=== PATIENT | female | born 1935 | race Caucasian/White ===

== ENCOUNTER → 2019-01-31 | Day surgery (SDC) | payer MEDICARE ==
[2019-01-30 09:10] VITALS: BMI 26.2
[~2019-01-31] MED LIST: LACTATED RINGERS 1,000 ML IV SCH; LIDOCAINE 1% INJ 10MG/ML (20 ML MDV) ONE; PROPOFOL 10 MG/ML 20 ML VIAL IV ONE
[2019-01-31 07:37] VITALS: RESP 16; TEMP 98.4
--- NOTE | 2019-01-31 08:45 | P.PCN ---
Date of Procedure: 01/31/19 Procedure(s) Performed: BRIEF HISTORY: Patient is a 83-year-old, pleasant, female, scheduled for an upper endoscopy as a part of evaluation of GERD and passive regurgitation with intermittent dysphagia to solids.. PROCEDURE PERFORMED: Esophagoscopy. PREOPERATIVE DIAGNOSIS: GERD and intermittent dysphagia to solids and passive regurgitation. IV sedation per anesthesia. PROCEDURE: After informed consent was obtained, the patient was brought into the endoscopy unit. IV sedation was administered by Anesthesia under continuous monitoring. Initially the Olympus GIF-140 video endoscope was inserted into the mouth. Esophagus intubated without any difficulty. 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 This was readily aspirated. Following this despite multiple attempts I was not able to advance the scope into the esophagus because of the acute angulation of the esophageal lumen. Hence the procedure was terminated to avoid complications. Patient tolerated the procedure well. IMPRESSION: 1. 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 RECOMMENDATIONS: The findings of this examination were discussed with the patient as well as her family. She'll be scheduled for a barium esophagogram to evaluate the rest of the esophagus. She'll be seen in office in 2 weeks.
[2019-01-31 08:49] VITALS: PULSE 80
[2019-01-31 09:05] VITALS: BP 164/79
--- NOTE | 2019-01-31 11:14 | FL ---
EXAMINATION TYPE: FL esophagus cervic/pharynx DATE OF EXAM: 01/31/2019 HISTORY: History of dysphasia with failed EGD today. Large diverticulum suspected. COMPARISON: NONE TECHNIQUE: A double contrast esophagram is performed utilizing air and barium. A total of 34 second s of fluoroscopic time was utilized during procedure. 52 spot images are saved. FINDINGS: Due to patient's age and limited mobility, exam is slightly suboptimal. Patient also had less than op timal tolerance of air contrast. There is a wide mouth lower cervical outpouching or diverticulum blanca ntified during real-time drinking. With the diverticulum measures roughly 2 vertebral widith. Length of diverticulum is roughly 4 vertebra and height. There is pooling of contrast with debris in the lar ge diverticulum. Neck is fairly wide mouth and felt slightly anterior in location. Some underlying es ophageal dysmotility is seen more prominent when patient drinks laying semiupright. Small sliding-typ e hiatal hernia seen towards the end of the study. No stricture is present. IMPRESSION: Confirmation of large esophageal outpouching favored large Zenker's diverticulum as deta iled above. Consider cardiothoracic surgical referral.
== END ==
LOC: ORWHC2ENDO 07:09
PROVIDERS: ATTEND Internal Medicine Gastroenterology
DX: K21.9 Gastro-esophageal reflux disease without esophagitis (principal); K22.5 Diverticulum of esophagus, acquired; T18.128A Food in esophagus causing other injury, initial encounter; K22.4 Dyskinesia of esophagus; K44.9 Diaphragmatic hernia without obstruction or gangrene; I10 Essential (primary) hypertension; Z87.891 Personal history of nicotine dependence; Z79.899 Other long term (current) drug therapy; Z97.2 Presence of dental prosthetic device (complete) (partial); Z98.42 Cataract extraction status, left eye; Z98.41 Cataract extraction status, right eye
CPT/HCPCS: 43200; 74210; J2001; J2704

== ENCOUNTER 2023-02-24 07:35 | Inpatient (IN) | payer MEDICARE ==
[2023-02-24] MEDS ORDERED: IPRATROPIUM-ALBUTEROL 3 ML NEB INHALATION STA (07:44)
[2023-02-24] MEDS ORDERED: methylPREDNISolone SOD SUCCI 125 MG/2 ML VIAL IV STA (07:44)
[2023-02-24] MEDS ORDERED: SODIUM CHLORIDE 0.9% 1,000 ML IV STA (07:44)
--- NOTE | 2023-02-24 07:48 | ED ---
General Adult HPI - General Chief complaint: Shortness of Breath Stated complaint: ASTON Time Seen by Provider: 02/24/23 07:36 Source: patient, EMS, RN notes reviewed Mode of arrival: EMS Limitations: no limitations - History of Present Illness Initial comments: Patient is a pleasant 87-year-old female presenting to the emergency department with concern with difficulty breathing. Onset of symptoms was yesterday. Patient did have her house fumigated. Patient feels like the fumes triggered her COPD. Pulse ox was 70% on arrival. Patient feeling much better with BiPAP. Patient did receive one nebulizer in route. No fever. No cough. No leg pain or leg swelling. Patient does have history of similar symptoms previous associated with COPD - Related Data Home Medications Medication Instructions Recorded Confirmed Loratadine [Claritin] 10 mg PO HS 01/30/19 01/31/19 Mag/Aluminum/Sod Bicarb/Alginc 2 each PO PC-TID 01/30/19 01/31/19 [Gaviscon 80-14.2 mg Tab Chew] amLODIPine [Norvasc] 5 mg PO BID 01/30/19 01/31/19 lisinopriL [Prinivil] 20 mg PO BID 01/30/19 01/31/19 Allergies Allergy/AdvReac Type Severity Reaction Status Date / Time No Known Allergies Allergy Verified 02/24/23 07:43 Review of Systems ROS Statement: Those systems with pertinent positive or pertinent negative responses have been documented in the HPI. ROS Other: All systems not noted in ROS Statement are negative. Constitutional: Denies: fever Eyes: Denies: eye pain ENT: Denies: ear pain Respiratory: Reports: as per HPI, dyspnea Cardiovascular: Denies: chest pain Endocrine: Denies: fatigue Gastrointestinal: Denies: abdominal pain Genitourinary: Denies: dysuria Musculoskeletal: Denies: back pain Skin: Denies: rash Neurological: Denies: weakness Past Medical History Past Medical History: GERD/Reflux, Hypertension Additional Past Medical History / Comment(s): ALLERGIES History of Any Multi-Drug Resistant Organisms: None Reported Additional Past Surgical History / Comment(s): CHRISTIAN CATARACTS Past Anesthesia/Blood Transfusion Reactions: No Reported Reaction Past Alcohol Use History: None Reported Past Drug Use History: None Reported - Past Family History Mother Family Medical History: No Reported History General Exam Limitations: no limitations General appearance: alert Head exam: Present: atraumatic, normocephalic Eye exam: Present: normal appearance Neck exam: Present: normal inspection Respiratory exam: Present: respiratory distress, wheezes, decreased breath sounds Cardiovascular Exam: Present: regular rate, normal rhythm GI/Abdominal exam: Present: soft. Absent: tenderness Extremities exam: Present: normal inspection. Absent: pedal edema, calf tenderness Neurological exam: Present: alert Psychiatric exam: Present: normal affect, normal mood Skin exam: Present: normal color Course Vital Signs 02/24/23 02/24/23 02/24/23 07:35 07:38 07:44 Temperature 96.9 F L Pulse Rate 89 Respiratory 24 Rate Blood Pressure 150/76 O2 Sat by Pulse 92 L Oximetry Fraction of 100 100 Inspired Oxygen (FIO2) 02/24/23 02/24/23 07:54 08:43 Temperature Pulse Rate 78 77 Respiratory 24 Rate Blood Pressure 115/60 O2 Sat by Pulse 100 Oximetry Fraction of Inspired Oxygen (FIO2) EKG Findings - EKG Results: EKG: interpreted by ERMD ((X this. Poor R-wave progression.), sinus rhythm, normal ST/T Medical Decision Making - Medical Decision Making There is concern for sepsis diagnosed at 9:12 AM. Patient does have COPD with Sirs criteria. Lactic acid and blood culture and IV antibiotic All been ordered. Lactic acid is elevated likely secondary to hypoxia. Patient will not be given any fluid bolus secondary to concern with congestive heart failure and this is being further evaluated. Was pt. sent in by a medical professional or institution (BELA Raines, PATIENT APPOINTMENT COORDINATOR, urgent care, hospital, or skilled nursing...) When possible be specific @ -No Did you speak to anyone other than the patient for history (EMS, parent, family, police, friend...)? What history was obtained from this source @ -Family arrived later and further provides history that patient was a sym ptomatic prior to exposure yesterday Did you review nursing and triage notes (agree or disagree)? Why? @ -I reviewed and agree with nursing and triage notes Were old charts reviewed (outside hosp., previous admission, EMS record, old EKG, old radiological studies, urgent care reports/EKG's, skilled nursing records)? Report findings @ -Did search for prior chest x-ray however none was available. Differential Diagnosis (chest pain, altered mental status, abdominal pain women, abdominal pain men, vaginal bleeding, weakness, fever, dyspnea, syncope, headache, dizziness, GI bleed, back pain, seizure, CVA, palpatations, mental health, musculoskeletal)? @ -Differential Dyspnea: Coronary syndrome, arrhythmia, tamponade, asthma, COPD, pulmonary embolism, pneumonia, pneumothorax, pulmonary effusion, anaphylaxis, diabetic ketoacidosis, flailed chest, pulmonary contusion, diaphragmatic rupture, anemia, neuromuscular, this is not meant to be an all-inclusive list. EKG interpreted by me (3pts min.). @ -As above X-rays interpreted by me (1pt min.). @ -Chest x-ray has diffuse interstitial changes without effusions. CT interpreted by me (1pt min.). @ -None done U/S interpreted by me (1pt. min.). @ -None done What testing was considered but not performed or refused? (CT, X-rays, U/S, labs)? Why? @ -None What meds were considered but not given or refused? Why? @ -None Did you discuss the management of the patient with other professionals (professionals i.e. , PA, PATIENT APPOINTMENT COORDINATOR, lab, RT, psych nurse, social services director, traffic division commanding officer, teacher, field crop technical officer, geriatric case manager)? Give summary @ -Case was discussed with practitioner Viviana, who will admit For Dr. Springer, who will admit covering for hospital call Was smoking cessation discussed for >3mins.? @ -No Was critical care preformed (if so, how long)? @ -31 minutes of critical care time Were there social determinants of health that impacted care today? How? (Homelessness, low income, unemployed, alcoholism, drug addiction, transportation, low edu. Level, literacy, decrease access to med. care, long term, rehab)? @ -No Was there de-escalation of care discussed even if they declined (Discuss DNR or withdrawal of care, Hospice)? DNR status @ -No What co-morbidities impacted this encounter? (DM, HTN, Smoking, COPD, CAD, Cancer, CVA, ARF, Chemo, Hep., AIDS, mental health diagnosis, sleep apnea, morbid obesity)? @ -None Was patient admitted / discharged? Hospital course, mention meds given and route, prescriptions, significant lab abnormalities, going to OR and other pertinent info. @ -Patient reevaluated and still doing well with BiPAP. Patient will be admitted. Admission orders written. Exact etiology of dyspnea is unclear. Patient does appear to have COPD exacerbation. Chest x-ray changes is unclear if this is chronic secondary to fibrosis or similar versus fluid overload versus infectious. Patient has been started on antibiotics and will be consulted with pulmonary and cardiology. Echo also ordered. Undiagnosed new problem with uncertain prognosis? @ -Exact etiology of dyspnea is unclear at this time. Drug Therapy requiring intensive monitoring for toxicity (Heparin, Nitro, Insulin, Cardizem)? @ -No Were any procedures done? @ -No Diagnosis/symptom? @ -Dyspnea, respiratory failure, COPD Acute, or Chronic, or Acute on Chronic? @ -Acute, acute, acute on chronic Uncomplicated (without systemic symptoms) or Complicated (systemic symptoms)? @ -Complicated with hypoxia Side effects of treatment? @ -No Exacerbation, Progression, or Severe Exacerbation? @ -Exacerbation of COPD Poses a threat to life or bodily function? How? (Chest pain, USA, NM, pneumonia, PE, COPD, DKA, ARF, appy, cholecystitis, CVA, Diverticulitis, Homicidal, Suicidal, threat to staff... and all critical care pts) @ -Potential to life through hypoxia - Lab Data Result diagrams: 02/24/23 07:56 02/24/23 07:56 Lab Results 02/24/23 02/24/23 02/24/23 Range/Units 07:56 07:56 07:56 WBC 10.2 (3.8-10.6) k/uL RBC 4.44 (3.80-5.40) m/uL Hgb 12.5 (11.4-16.0) gm/dL Hct 40.5 (34.0-46.0) % MCV 91.2 (80.0-100.0) fL MCH 28.2 (25.0-35.0) pg MCHC 31.0 (31.0-37.0) g/dL RDW 14.0 (11.5-15.5) % Plt Count 223 (150-450) k/uL MPV 8.6 Neutrophils % 67 % Lymphocytes % 23 % Monocytes % 5 % Eosinophils % 2 % Basophils % 1 % Neutrophils # 6.9 (1.3-7.7) k/uL Lymphocytes # 2.3 (1.0-4.8) k/uL Monocytes # 0.5 (0-1.0) k/uL Eosinophils # 0.2 (0-0.7) k/uL Basophils # 0.1 (0-0.2) k/uL Hypochromasia Moderate Sodium 137 (137-145) mmol/L Potassium 4.3 (3.5-5.1) mmol/L Chloride 104 (98-107) mmol/L Carbon Dioxide 21 L (22-30) mmol/L Anion Gap 12 mmol/L BUN 20 H (7-17) mg/dL Creatinine 0.83 (0.52-1.04) mg/dL Est GFR (CKD-EPI)AfAm 73 (>60 ml/min/1.73 sqM) Est GFR (CKD-EPI)NonAf 63 (>60 ml/min/1.73 sqM) Glucose 269 H (74-99) mg/dL Plasma Lactic Acid [place] 3.0 H* (0.7-2.0) mmol/L Calcium 8.8 (8.4-10.2) mg/dL Magnesium 1.7 (1.6-2.3) mg/dL Total Bilirubin 0.7 (0.2-1.3) mg/dL AST 28 (14-36) U/L ALT 17 (4-34) U/L Alkaline Phosphatase 78 (38-126) U/L NT-Pro-B Natriuret Pep 7010 pg/mL Total Protein 7.2 (6.3-8.2) g/dL Albumin 4.0 (3.5-5.0) g/dL Critical Care Time Critical Care Time: Yes Total Critical Care Time: 31 Disposition Clinical Impression: Acute exacerbation of chronic obstructive pulmonary disease, Acute respiratory failure Disposition: ADMITTED IP TO THIS [facility] Condition: Serious Is patient prescribed a controlled substance at d/c from ED?: No Referrals: Enrico Setarns DO [Primary Care Provider] - 1-2 days Time of Disposition: 09:16
--- NOTE | 2023-02-24 08:06 | XR ---
EXAMINATION TYPE: XR chest 1V portable DATE OF EXAM: 02/24/2023 HISTORY: Shortness of breath. COMPARISON: None. TECHNIQUE: Single view of the chest is submitted. FINDINGS: Demonstrated are scattered senescent parenchymal change. Bilateral patchy infiltrates may reflect pneumonia versus acute pulmonary edema. Correlate clinically . Is evidence of cardiomegaly. Hilar and mediastinal structures are within normal limits. Degenerative changes are seen of the dorsal spine. IMPRESSION: 1. Bilateral patchy infiltrates may reflect pneumonia versus acute pulmonary edema. Correlate clinic ally.
[2023-02-24 08:11] LABS: Basophils # (A) 0.1 k/uL (0-0.2); Basophils % (A) 1 %; Eosinophils # (A) 0.2 k/uL (0-0.7); Eosinophils % (A) 2 %; HCT 40.5 % (34.0-46.0); HGB 12.5 gm/dL (11.4-16.0); Hypochromasia Moderate; Lymphocytes # (A) 2.3 k/uL (1.0-4.8); Lymphocytes % (A) 23 %; MCH 28.2 pg (25.0-35.0); MCV 91.2 fL (80.0-100.0); Mean Platelet Volume 8.6; Monocytes # (A) 0.5 k/uL (0-1.0); Monocytes % (A) 5 %; Neutrophils # (A) 6.9 k/uL (1.3-7.7); Neutrophils % (A) 67 %; Platelet Count 223 k/uL (150-450); RBC 4.44 m/uL (3.80-5.40); WBC 10.2 k/uL (3.8-10.6)
[2023-02-24 08:22] LABS: ALT 17 U/L (4-34); AST 28 U/L (14-36); African American GFR (CKD) 73 (>60 ml/min/1.73 sqM); Alkaline Phosphatase 78 U/L (38-126); Anion Gap 12 mmol/L; Blood Urea Nitrogen 20 mg/dL (7-17); Calcium 8.8 mg/dL (8.4-10.2); Carbon Dioxide 21 mmol/L (22-30); Chloride 104 mmol/L (98-107); Glucose 269 mg/dL (74-99); Magnesium 1.7 mg/dL (1.6-2.3); Non-African American GFR(CKD) 63 (>60 ml/min/1.73 sqM); Potassium 4.3 mmol/L (3.5-5.1); Sodium 137 mmol/L (137-145); Total Bilirubin 0.7 mg/dL (0.2-1.3); Total Protein 7.2 g/dL (6.3-8.2)
[2023-02-24 08:31] LABS: NT-Pro-B-Type Natriuretic Pept 7010 pg/mL
[2023-02-24] MEDS ORDERED: IPRATROPIUM-ALBUTEROL 3 ML NEB INHALATION PRN (09:09)
[2023-02-24] MEDS ORDERED: NALOXONE 0.4 MG/ML 1 ML VIAL IVP PRN (09:09)
[2023-02-24 09:10] LABS: Prothrombin Time 10.2 sec (9.0-12.0)
[2023-02-24 09:14] LABS: Partial Thromboplastin Time 21.9 sec (22.0-30.0)
[2023-02-24] MEDS ORDERED: DEXTROSE 50% SYRINGE 50 ML IVP PRN ×2 (09:24)
[2023-02-24] MEDS ORDERED: FUROSEMIDE 10 MG/ML 4 ML VIAL IV SCH (10:00)
[2023-02-24] MEDS: IPRATROPIUM-ALBUTEROL 3 ML NEB INHALATION SCH ×3 (11:04→19:52)
[2023-02-24] MEDS: methylPREDNISolone SOD SUCCI 125 MG/2 ML VIAL IV SCH ×2 (11:17→17:26)
[2023-02-24] MEDS: HEPARIN SODIUM,PORCINE 5,000 UNIT/ML 1 ML VIAL SQ SCH ×2 (11:19→15:56)
[2023-02-24 11:45] LABS: Glucose,Whole Blood 141 mg/dL (70-110)
--- NOTE | 2023-02-24 11:56 | P.CNPUL ---
History of Present Illness Consult date: 02/24/23 Reason for consult: dyspnea, hypoxemia History of present illness: This is an 87-year-old female patient, living independently along with her [place] stella, presented to the hospital because of worsening shortness of breath. 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 The patient slept in the hospital and she woke up with significant shortness of breath. No cough. No sputum production. No chest tightness. No cardiac arrhythmias. No previous history of cardiac disease. No reported fever or chills. No swelling in lower extremities. The chest x-ray showing diffuse bilateral pulmonary infiltrates and the patient was initially on a nonrebreather facemask and following that the patient was placed on a BiPAP at a pressure of 12/5 cm of water with an FiO2 of 100%. I weaned her down to 60% in the emergency department. I reviewed the chest x-ray is consistent with diffuse pulmonary infiltrates. Could be pneumonia. Could be also acute pulmonary edema. EKG showing normal sinus rhythm with left axis deviation. No significant ST segment changes. Rest of the blood work shows a WBC count of 10.2, glucose 4.5 and a platelet count of 223, BUN is at 20 with a creatinine of 0.8 and a sodium level is at 137. Lactic acid level was at 3.0. LFTs are normal. The viral screen including Covid 19, influenza and RSV were all negative. ProBNP level is 7010. The patient was given IV antibiotics in the emergency department. She was started on steroids as the patient was found to be quite congested and bronchospastic. No history of smoking. No history of asthma or emphysema. She has history of Zenker's diverticulum and she has undergone previous esophageal surgery and on her chest x-ray that is an outpouching of the esophagus in the superior mediastinum. No reported aspiration. She has history of reflux. Review of Systems Constitutional: Reports as per HPI Eyes: denies as per HPI, denies blurred vision, denies bulging eye, denies decreased vision, denies diplopia, denies discharge, denies dry eye, denies irritation, denies itching, denies pain, denies photophobia, denies loss of peripheral vision, denies loss of vision, denies tunnel vision/blind spots Ears: deny: decreased hearing, ear discharge, earache, tinnitus Ears, nose, mouth and throat: Reports as per HPI Breasts: absent: as per HPI, change in shape, gynecomastia, masses, nipple discharge, pain, skin changes, swelling Cardiovascular: Reports decreased exercise tolerance, Reports dyspnea on exertion Respiratory: Reports dyspnea Gastrointestinal: Reports as per HPI (Zinc his diverticulum), Reports indigestion Genitourinary: Reports as per HPI Menstruation: Reports as per HPI Musculoskeletal: Reports as per HPI Musculoskeletal: absent: ankle pain, ankle stiffness, ankle swelling Integumentary: Reports as per HPI Neurological: Reports as per HPI Psychiatric: Reports as per HPI Endocrine: Reports as per HPI Hematologic/Lymphatic: Reports as per HPI Allergic/Immunologic: Reports as per HPI Past Medical History Past Medical History: GERD/Reflux, Hypertension Additional Past Medical History / Comment(s): ALLERGIES History of Any Multi-Drug Resistant Organisms: None Reported Additional Past Surgical History / Comment(s): CHRISTIAN CATARACTS, esophageal surgery for zenker's diverticulum Past Anesthesia/Blood Transfusion Reactions: No Reported Reaction Past Alcohol Use History: None Reported Past Drug Use History: None Reported - Past Family History Mother Family Medical History: No Reported History Medications and Allergies Home Medications Medication Instructions Recorded Confirmed Type amLODIPine [Norvasc] 5 mg PO BID 01/30/19 02/24/23 History lisinopriL [Prinivil] 20 mg PO BID 01/30/19 02/24/23 History Omeprazole [PriLOSEC] 20 mg PO DAILY 02/24/23 02/24/23 History Allergies Allergy/AdvReac Type Severity Reaction Status Date / Time No Known Allergies Allergy Verified 02/24/23 07:43 Physical Exam Vitals: Vital Signs Temp Pulse Resp BP Pulse Ox FiO2 02/24/23 08:43 77 24 115/60 100 02/24/23 07:54 78 02/24/23 07:44 100 02/24/23 07:38 96.9 F L 89 24 150/76 92 L 02/24/23 07:35 100 Intake and Output 02/23/23 02/24/23 02/24/23 22:59 06:59 14:59 Other: Weight 63.503 kg Gen. appearance, the patient is calm and comfortable, she is currently on a BiPAP and she is tolerating the BiPAP without any major difficulties Head exam was generally normal. There was no scleral icterus or corneal arcus. Mucous membranes were moist. Neck was supple and with bilateral jugular venous distension, thyromegaly, or carotid bruits. Carotids were easily palpable bilaterally. There was no adenopathy. Lungs sounds are diminished and the patient has crackles in the mid and lower lung field bilaterally and scattered rhonchi and wheeze Cardiac exam revealed the PMI to be normally situated and sized. The rhythm was regular and no extrasystoles were noted during several minutes of auscultation. The first and second heart sounds were normal and physiologic splitting of the second heart sound was noted. There were no murmurs, rubs, clicks, or gallops. Abdominal exam revealed normal bowel sounds. The abdomen was soft, non-tender, and without masses, organomegaly, or appreciable enlargement of the abdominal aorta. Examination of the extremities revealed easily palpable radial, femoral and peda l pulses. There was no cyanosis, clubbing or edema. Examination of the skin revealed no evidence of significant rashes, suspicious appearing nevi or other concerning lesions. Neurologically, the patient is awake and alert and the patient does not have any focal neurological deficit. Cranial nerves are essentially intact. Results - Laboratory Findings CBC and BMP: 02/24/23 07:56 02/24/23 07:56 PT/INR, D-dimer PT 10.2 sec (9.0-12.0) 02/24/23 08:52 INR 1.0 (<1.2) 02/24/23 08:52 Abnormal lab findings: Abnormal Labs 02/24/23 02/24/23 02/24/23 07:56 07:56 08:52 APTT 21.9 L Carbon Dioxide 21 L BUN 20 H Glucose 269 H Plasma Lactic Acid [place] 3.0 H* - Diagnostic Findings Chest x-ray: image reviewed Assessment and Plan Plan: Acute hypoxic respiratory failure currently on BiPAP. Rule out possible acute chemical exposure/chemical pneumonitis. Rule out acute pulmonary edema. Acute bacterial/viral pneumonia is felt to be less likely. Acute aspiration with secondary noncardiogenic pulmonary edema is to be considered as the patient has a Zenker's diverticulum and a large outpouching of the superior mediastinum probably related to a residual diverticulum on today's chest x-ray. Acute shortness of breath secondary to above History of Zenker's diverticulum with surgical repair Chronic reflux Elevated proBNP level, rule out underlying CHF/pulmonary edema Hypertension Plan Admit the patient to the intensive care unit Continue same BiPAP setting and dropped FiO2 gradually to maintain a saturation above 90% Cover the patient with DuoNeb updrafts Continue current antibiotic coverage and the patient is currently on accommodation of Zosyn and Zithromax. Zosyn is adequate as this patient suspected Continue IV Solu-Medrol Lasix 40 mg every 12 hours Echocardiogram We'll continue to follow. We'll offer the patient DVT and GI prophylaxis.
[2023-02-24] MEDS: AZITHROMYCIN 500 MG in SODIUM CHLORIDE 0.9% 250 ML IVPB SCH (12:11)
[2023-02-24] MEDS: PIPERACILLIN-TAZOBACTAM 3.375 GM in SODIUM CHLORIDE 0.9% 100 ML IVPB SCH ×2 (12:15→15:56)
[2023-02-24] MEDS: INSULIN ASPART (NovoLOG) 100 UNIT/ML VIAL SQ SCH ×3 (12:54→20:54)
[2023-02-24 16:51] LABS: Glucose,Whole Blood 190 mg/dL (70-110)
--- NOTE | 2023-02-24 17:49 | P.CRDCN ---
History of Present Illness Consult date: 02/24/23 History of present illness: HISTORY OF PRESENTING ILLNESS Patient is a 87-year-old female with no prior cardiovascular history. She does have history of hypertension for which she takes amlodipine and lisinopril. This time patient presented to the hospital with worsening shortness of breath. Patient reports that she was apparently exposed to the chemicals using to eradicate disease. Patient had fumigation done yesterday at her home and she was asked to stay out on the house for at least 4 hours after the treatment. Patient slept at home and woke up significantly short of breath today. She denied having any cough or sputum production. She denied having any chest pain chest pressure. She denied having any palpitations. Patient denies having any symptoms of shortness of breath prior to this event. On admission she was noticed to have bilateral pulmonary congestion on chest x- ray. Her proBNP was elevated at 7000, WBC count was 10.2, platelets 228 3, BUN 20, creatinine 0.8. Her EKG shows normal sinus rhythm with LVH by voltage criteria. REVIEW OF SYSTEMS 14 point review of system is negative except what is mentioned above in HPI. PHYSICAL EXAMINATION Vital signs reviewed. Head: Normocephalic. Eyes: Sclerae nonicteric. Neck: Brisk carotid upstroke, no jugular venous distention. Lungs: No wheezing, mild rhonchi audible Heart: Regular rate and rhythm, S1-S2, no S3, no murmur or rub. Abdomen: Soft nontender, positive bowel sounds no organomegaly. Extremities: No edema, intact distal pulses. ASSESSMENT Acute hypoxic respiratory failure and shortness of breath likely due to chemical pneumonitis, after getting exposed to fumigation. Mild wheezing likely due to bronchitis History of Zenker's diverticulum Essential hypertension PLAN Patient does not appears volume overloaded clinically. This is unlikely c ongestive heart failure even though the BNP is elevated. She already got Lasix in the morning. I will discontinue her further Lasix Monitor renal function and electrolytes tomorrow Obtain an echocardiogram to look for LV size and systolic function Resume home medication amlodipine and lisinopril from tomorrow. Further recommendations to follow echo results Agree with breathing treatments Antibiotics as per primary team and pulmonology team Past Medical History Past Medical History: GERD/Reflux, Hypertension Additional Past Medical History / Comment(s): ALLERGIES History of Any Multi-Drug Resistant Organisms: None Reported Additional Past Surgical History / Comment(s): CHRISTIAN CATARACTS, esophageal surgery for zenker's diverticulum Past Anesthesia/Blood Transfusion Reactions: No Reported Reaction Past Alcohol Use History: None Reported Past Drug Use History: None Reported - Past Family History Mother Family Medical History: No Reported History Medications and Allergies Home Medications Medication Instructions Recorded Confirmed Type amLODIPine [Norvasc] 5 mg PO BID 01/30/19 02/24/23 History lisinopriL [Prinivil] 20 mg PO BID 01/30/19 02/24/23 History Omeprazole [PriLOSEC] 20 mg PO DAILY 02/24/23 02/24/23 History Allergies Allergy/AdvReac Type Severity Reaction Status Date / Time No Known Allergies Allergy Verified 02/24/23 07:43 Physical Exam Vitals: Vital Signs Temp Pulse Resp BP Pulse Ox FiO2 02/24/23 17:00 96 16 110/87 95 02/24/23 16:00 98.2 F 101 H 14 116/70 93 L 60 02/24/23 15:46 90 02/24/23 15:33 98 02/24/23 15:00 102 H 21 109/64 93 L 02/24/23 14:00 80 17 110/65 93 L 02/24/23 13:30 78 16 122/71 92 L 02/24/23 13:00 84 19 123/80 92 L 02/24/23 12:30 97 17 128/77 92 L 02/24/23 12:15 103 H 21 128/77 91 L 02/24/23 12:00 96 15 140/80 92 L 02/24/23 11:45 97.7 F 109 H 19 95 60 02/24/23 11:17 88 02/24/23 11:12 81 20 144/60 100 02/24/23 11:07 80 60 02/24/23 09:48 60 02/24/23 08:43 77 24 115/60 100 02/24/23 08:02 74 02/24/23 07:54 78 02/24/23 07:44 100 02/24/23 07:38 96.9 F L 89 24 150/76 92 L 02/24/23 07:35 100 Intake and Output 02/24/23 02/24/23 02/24/23 06:59 14:59 22:59 Intake Total 410 460 Output Total 400 Balance 410 60 Intake: IV 60 60 0.9 NS 60 60 Intake, IV Titration 350 100 Amount Azithromycin 500 mg In 250 Sodium Chloride 0.9% 250 ml @ 250 mls/hr IVPB DAILY [facility] Rx#:[id number] Piperacillin-Tazobactam 3 100 100 .375 gm In Sodium Chloride 0.9% 100 ml @ 25 mls/hr IVPB Q8HR [facility] Rx# :[id number] Oral 300 Output: Urine 400 Other: # Voids 1 Weight 63.503 kg Results 02/24/23 07:56 02/24/23 07:56 Cardiac Enzymes 02/24/23 Range/Units 07:56 AST 28 (14-36) U/L Coagulation 02/24/23 Range/Units 08:52 PT 10.2 (9.0-12.0) sec APTT 21.9 L (22.0-30.0) sec CBC 02/24/23 Range/Units 07:56 WBC 10.2 (3.8-10.6) k/uL RBC 4.44 (3.80-5.40) m/uL Hgb 12.5 (11.4-16.0) gm/dL Hct 40.5 (34.0-46.0) % Plt Count 223 (150-450) k/uL Comprehensive Metabolic Panel 02/24/23 Range/Units 07:56 Sodium 137 (137-145) mmol/L Potassium 4.3 (3.5-5.1) mmol/L Chloride 104 (98-107) mmol/L Carbon Dioxide 21 L (22-30) mmol/L BUN 20 H (7-17) mg/dL Creatinine 0.83 (0.52-1.04) mg/dL Glucose 269 H (74-99) mg/dL Calcium 8.8 (8.4-10.2) mg/dL AST 28 (14-36) U/L ALT 17 (4-34) U/L Alkaline Phosphatase 78 (38-126) U/L Total Protein 7.2 (6.3-8.2) g/dL Albumin 4.0 (3.5-5.0) g/dL Current Medications Generic Name Dose Route Start Last Admin Trade Name Freq PRN Reason Stop Dose Admin Albuterol/Ipratropium 3 ml 02/24/23 12:00 02/24/23 15:33 Ipratropium-Albuterol 3 Ml Neb INHALATION 3 ml RT-QID [facility] Administration Albuterol/Ipratropium 3 ml 02/24/23 09:09 Ipratropium-Albuterol 3 Ml Neb INHALATION RT-Q2H PRN Shortness Of Breath Or Wheezing Dextrose/Water 25 ml 02/24/23 09:24 Dextrose 50% Syringe 50 Ml IVP PER PROTOCOL PRN Hypoglycemia Protocol Dextrose/Water 50 ml 02/24/23 09:24 Dextrose 50% Syringe 50 Ml IVP PER PROTOCOL PRN Hypoglycemia Protocol Furosemide 40 mg 02/24/23 10:00 02/24/23 11:19 Furosemide 10 Mg/Ml 4 Ml Vial IV 40 mg Q12HR [facility] Administration Heparin Sodium (Porcine) 5,000 unit 02/24/23 10:00 02/24/23 15:56 Heparin Sodium,Porcine 5,000 Unit/Ml 1 Ml Vial SQ 5,000 unit Q8HR [facility] Administration Azithromycin 500 mg/ Sodium 250 mls @ 250 mls/hr 02/24/23 09:15 02/24/23 12:11 Chloride IVPB 02/26/23 09:59 250 mls/hr DAILY [facility] Administration Protocol Piperacillin Sod/Tazobactam 100 mls @ 25 mls/hr 02/24/23 10:00 02/24/23 15:56 Sod 3.375 gm/ Sodium Chloride IVPB 25 mls/hr Q8HR [facility] Administration Protocol Insulin Aspart 0 unit 02/24/23 12:30 02/24/23 17:12 Insulin Aspart (Novolog) 100 Unit/Ml Vial SQ 1 unit ACHS [facility] Administration Protocol Methylprednisolone Sodium Succinate 60 mg 02/24/23 12:00 02/24/23 17:26 Methylprednisolone Sod Succi 125 Mg/2 Ml Vial IV 60 mg Q6HR [facility] Administration Naloxone HCl 0.2 mg 02/24/23 09:09 Naloxone 0.4 Mg/Ml 1 Ml Vial IVP Q2M PRN Opioid Reversal Intake and Output 02/24/23 02/24/23 02/24/23 06:59 14:59 22:59 Intake Total 410 460 Output Total 400 Balance 410 60 Intake: IV 60 60 0.9 NS 60 60 Intake, IV Titration 350 100 Amount Azithromycin 500 mg In 250 Sodium Chloride 0.9% 250 ml @ 250 mls/hr IVPB DAILY [facility] Rx#:[id number] Piperacillin-Tazobactam 3 100 100 .375 gm In Sodium Chloride 0.9% 100 ml @ 25 mls/hr IVPB Q8HR [facility] Rx# :[id number] Oral 300 Output: Urine 400 Other: # Voids 1 Weight 63.503 kg Patient Weight 02/25/23 06:59 Weight 63.503 kg 02/24/23 07:56 02/24/23 07:56
--- NOTE | 2023-02-24 17:56 | CA ---
Transthoracic Echo Report Name: Jeri Tang Age: 87 Gender: F : 1935 Exam Date: 02/24/2023 14:53 Exam Location: [facility] Ht (in): 66 Wt (lb): 140 Ordering Physician: Faustino Aparicio DO Attending/Referring Phys: Warehouse Analyst Osmany Kelly Procedure CPT: Indications: dyspnea, chf eval Cardiac Hx: Technical Quality: Fair Contrast 1: Total Dose (mL): Contrast 2: Total Dose (mL): MEASUREMENTS (Male / Female) Normal Values 2D ECHO LV Diastolic Diameter PLAX 6.0 cm 4.2 - 5.9 / 3.9 - 5.3 cm LV Systolic Diameter PLAX 4.6 cm IVS Diastolic Thickness 1.1 cm 0.6 - 1.0 / 0.6 - 0.9 cm LVPW Diastolic Thickness 1.3 cm 0.6 - 1.0 / 0.6 - 0.9 cm LV Relative Wall Thickness 0.4 RV Internal Dim ED PLAX 2.1 cm LVOT Diameter 2.1 cm Aortic Root Diameter 2.9 cm LA Systolic Diameter LX 2.9 cm 3.0 - 4.0 / 2.7 - 3.8 cm LV Diastolic Volume MOD BP 138.2 cm??? 67 - 155 / 56 - 104 cm??? LV Systolic Volume MOD BP 100.6 cm??? - 58 / 19 - 49 cm??? LV Ejection Fraction MOD BP 27.2 % >= 55 % LV Cardiac Index MOD BP 2140.1 cm???/min???m??? LV Diastolic Volume MOD 4C 133.7 cm??? LV Systolic Volume MOD 4C 88.2 cm??? LV Ejection Fraction MOD 4C 34.0 % LV Cardiac Index MOD 4C 2588.8 cm???/min???m??? LV Diastolic Length 4C 8.4 cm LV Systolic Length 4C 8.1 cm LV Diastolic Volume MOD 2C 128.3 cm??? LV Systolic Volume MOD 2C 102.2 cm??? LV Ejection Fraction MOD 2C 20.3 % LV Cardiac Index MOD 2C 1482.5 cm???/min???m??? LV Diastolic Length 2C 9.4 cm LV Systolic Length 2C 9.2 cm LA Volume 65.5 cm??? 18 - 58 / 22 - 52 cm??? DOPPLER AV Peak Velocity 128.6 cm/s AV Peak Gradient 6.6 mmHg AI Peak Velocity 400.3 cm/s AI Peak Gradient 64.1 mmHg AI Pressure Half Time 534.5 ms LVOT Peak Velocity 78.8 cm/s LVOT Peak Gradient 2.5 mmHg LVOT Velocity Time Integral 12.3 cm LVOT Stroke Volume 41.8 cm??? LVOT Stroke Volume Index 24.3 ml/m??? LVOT Cardiac Index 2378.6 cm???/min???m??? AV Area Cont Eq pk 2.1 cm??? MV Peak Velocity 130.2 cm/s MV Peak Gradient 6.8 mmHg MV Mean Velocity 61.0 cm/s MV Mean Gradient 2.0 mmHg MV Velocity Time Integral 35.2 cm MR Peak Velocity 446.6 cm/s MR Peak Gradient 79.8 mmHg Mitral E Point Velocity 115.1 cm/s Mitral A Point Velocity 95.9 cm/s Mitral E to A Ratio 1.2 MV Deceleration Time 123.4 ms MV E' Velocity 3.6 cm/s Mitral E to MV E' Ratio 32.2 TR Peak Velocity 297.5 cm/s TR Peak Gradient 35.4 mmHg Right Ventricular Systolic Press 40.4 mmHg PV Peak Velocity 107.7 cm/s PV Peak Gradient 4.6 mmHg FINDINGS Left Ventricle Mildly increased LV mariela. Left ventricular ejection fraction is estimated at 20-25%. Severe global hypokinesis with apical akinesis. Mildly increased left ventricular wall thickness. Right Ventricle Normal right ventricular size. Right Atrium Normal right atrial size. Left Atrium Moderately increased left atrial volume. LA volume index= 38ml/m2 Mitral Valve Moderate Mitral calcification. Moderate MR. Aortic Valve Trileaflet aortic valve. Mild AV calcification. Mild to Moderate AI. Tricuspid Valve Structurally normal tricuspid valve. Mild TR. Pulmonic Valve Pulmonic valve not well visualized. Mild PI. Pericardium Normal pericardium. Aorta Normal size aortic root and proximal ascending aorta. CONCLUSIONS 1. Dilated left ventricle with severely impaired systolic function 2. Moderate mitral with [id number] aortic regurgitation 3. Mild tricuspid regurgitation and mild pulmonary hypertension Previewed by: Dr. Maida Tracey MD (Electronically Signed) Final Date: 24 February 2023 17:55
[2023-02-24 20:17] LABS: Glucose,Whole Blood 217 mg/dL (70-110)
--- NOTE | 2023-02-24 21:28 | P.HPIM ---
History of Present Illness H&P Date: 02/24/23 Chief Complaint: Shortness of breath Patient is a 87-year-old female with a known history of hypertension, GERD, history of esophageal surgery for Zenker's diverticulum presents to ER with complaints of worsening shortness of breath since yesterday evening. Patient's son is at bedside. Apparently she was exposed to fumigation for pest control at home yesterday afternoon. Since then she has not been feeling well since then. Her shortness of breath started yesterday evening. She slept inside the home and in the morning she became more short of breath which made her to come to ER. Otherwise patient denies any complaints of recent illnesses. No cough or sputum production. No chest pain or tightness. No nausea vomiting. No fever no chills. No leg swelling.Patient lives by herself and her son lives 4 blocks away. Chest x-ray showed bilateral patchy infiltrates may reflect pneumonia versus acute pulmonary edema. Correlate clinically. EKG showed sinus rhythm with sinus arrhythmia. On admission patient was hypoxic and was in respiratory failure requiring BiPAP. Laboratory showed WBC 10.2 hemoglobin 12.5 and platelets 223 Sodium 137 potassium 4.3 chloride 104 bicarb is 21 BUN 20 and creatinine 0.83 and blood sugar is 269. Lactic acid 3.0. Magnesium 1.7 and proBNP 7010. Liver enzymes are elevated albumin is 2.0. Review of Systems Constitutional: Patient denies any fever or chills . no Generalized weakness. Abdomen: Patient denied any nausea or vomiting or abd. pain Cardiovascular: Patient denies any chest pain + short of breath no palpitations. Respiratory: patient denied any cough . no sputum production. + shortness of breath Neurologic: Patient denied any numbness or tingling headache. Musculoskeletal: Patient denies any complaints of joint swelling or deformity. Skin: Negative Psychiatric: Negative Endocrine: No heat or cold intolerance. No recent weight gain. Genitourinary: No dysuria or hematuria. All other 14 point ROS negative except the above Past Medical History Past Medical History: GERD/Reflux, Hypertension Additional Past Medical History / Comment(s): ALLERGIES History of Any Multi-Drug Resistant Organisms: None Reported Additional Past Surgical History / Comment(s): CHRISTIAN CATARACTS Past Anesthesia/Blood Transfusion Reactions: No Reported Reaction Past Alcohol Use History: None Reported Past Drug Use History: None Reported - Past Family History Mother Family Medical History: No Reported History Medications and Allergies Home Medications Medication Instructions Recorded Confirmed Type amLODIPine [Norvasc] 5 mg PO BID 01/30/19 02/24/23 History lisinopriL [Prinivil] 20 mg PO BID 01/30/19 02/24/23 History Omeprazole [PriLOSEC] 20 mg PO DAILY 02/24/23 02/24/23 History Allergies Allergy/AdvReac Type Severity Reaction Status Date / Time No Known Allergies Allergy Verified 02/24/23 07:43 Physical Exam Vitals: Vital Signs Temp Pulse Resp BP Pulse Ox FiO2 02/24/23 08:43 77 24 115/60 100 02/24/23 07:54 78 02/24/23 07:44 100 02/24/23 07:38 96.9 F L 89 24 150/76 92 L 02/24/23 07:35 100 Intake and Output 02/23/23 02/24/23 02/24/23 22:59 06:59 14:59 Other: Weight 63.503 kg PHYSICAL EXAMINATION: Patient is lying in the bed comfortably, no acute distress, awake alert and oriented.. HEENT: Normocephalic. Neck is supple. Pupils reactive. Nostrils clear. Oral cavity is moist. Neck reveals no JVD, carotid bruits, or thyromegaly. CHEST EXAMINATION: Trachea is central. Symmetrical expansion. Bilateral dim inished sounds, scattered rhonchi and wheezing present. Nonlabored breathing.. CARDIAC: Normal S1, S2 with no gallops. No murmurs ABDOMEN: Soft. Bowel sounds present. Nontender. No organomegaly. No abdominal bruits. Extremities: reveal no edema. No clubbing or cyanosis Neurologically awake, alert, oriented x3 with well-coordinated movements. No focal deficits noted Skin: No rash or skin lesions. Psychiatric: Coperative. Nonsuicidal, Musculoskeletal: No joint swelling or deformity. Normal range of motion. Results CBC & Chem 7: 02/24/23 07:56 02/24/23 07:56 Labs: Abnormal Lab Results - Last 24 Hours (Table) 02/24/23 02/24/23 02/24/23 Range/Units 07:56 07:56 08:52 APTT 21.9 L (22.0-30.0) sec Carbon Dioxide 21 L (22-30) mmol/L BUN 20 H (7-17) mg/dL Glucose 269 H (74-99) mg/dL Plasma Lactic Acid [place] 3.0 H* (0.7-2.0) mmol/L Thrombosis Risk Factor Assmnt - DVT/VTE Prophylaxis DVT/VTE Prophylaxis: Pharmacologic Prophylaxis ordered Assessment and Plan Assessment: Acute hypoxic respiratory failure requiring BiPAP likely due to exposure to fumigating chemicals and pulmonary edema. Possible pneumonia-Aspiration less likely but patient does have Zenker's d iverticulum and large outpouching of the superior mediastinum probably related to residual diverticulum shown on chest x-ray. Lactic acidosis likely due to decreased tissue perfusion. Hypertension Chronic GERD History of genital stye with no repair Elevated proBNP level. Rule out acute CHF in view of pulmonary edema DVT prophylaxis with heparin subcu Plan: Patient will be continued on oxygen supplementation. Was on BiPAP in the ER. Currently being titrated down to nasal cannula oxygen. Was given IV hydration with normal saline. Continue with IV Solu-Medrol 60 mg every 6 hourly and was also started on IV Lasix. Continue with antibiotics in the form of Zosyn. Was also started on Lasix IV every 12 and follow-up 2D echocardiogram. Continue with home blood pressure medications as tolerated. Critical care team and cardiology is on board. Discussed with the family at bedside in detail. Continue to follow closely. Time with Patient: Greater than 30
[2023-02-24] MEDS: MAGNESIUM SULFATE-D5W PMX 1 GM in DEXTROSE/WATER 1 100ML.BAG IVPB SCH ×2 (21:58→23:10)
[2023-02-25] MEDS: PIPERACILLIN-TAZOBACTAM 3.375 GM in SODIUM CHLORIDE 0.9% 100 ML IVPB SCH (00:09)
[2023-02-25] MEDS: HEPARIN SODIUM,PORCINE 5,000 UNIT/ML 1 ML VIAL SQ SCH ×4 (00:11→23:27)
[2023-02-25] MEDS: methylPREDNISolone SOD SUCCI 125 MG/2 ML VIAL IV SCH ×2 (00:11→06:56)
[2023-02-25] MEDS: MELATONIN 3 MG TABLET PO SCH ×2 (00:11→20:20)
[2023-02-25 04:24] LABS: HCT 31.7 % (34.0-46.0); HGB 10.2 gm/dL (11.4-16.0); Hypochromasia Slight; MCH 28.3 pg (25.0-35.0); MCV 88.3 fL (80.0-100.0); Mean Platelet Volume 8.3; Platelet Count 220 k/uL (150-450); RBC 3.59 m/uL (3.80-5.40); WBC 11.3 k/uL (3.8-10.6)
[2023-02-25 04:41] LABS: ALT 15 U/L (4-34); AST 31 U/L (14-36); African American GFR (CKD) 57 (>60 ml/min/1.73 sqM); Albumin 3.6 g/dL (3.5-5.0); Alkaline Phosphatase 69 U/L (38-126); Anion Gap 9 mmol/L; Blood Urea Nitrogen 20 mg/dL (7-17); Calcium 8.7 mg/dL (8.4-10.2); Carbon Dioxide 24 mmol/L (22-30); Chloride 101 mmol/L (98-107); Glucose 137 mg/dL (74-99); Magnesium 2.4 mg/dL (1.6-2.3); Non-African American GFR(CKD) 50 (>60 ml/min/1.73 sqM); Sodium 134 mmol/L (137-145); Total Bilirubin 0.4 mg/dL (0.2-1.3); Total Protein 6.5 g/dL (6.3-8.2)
[2023-02-25 06:11] LABS: Glucose,Whole Blood 138 mg/dL (70-110)
[2023-02-25] MEDS: INSULIN ASPART (NovoLOG) 100 UNIT/ML VIAL SQ SCH ×5 (06:41→20:19)
--- NOTE | 2023-02-25 08:06 | XR ---
EXAMINATION TYPE: XR chest 1V portable DATE OF EXAM: 02/25/2023 HISTORY: Shortness of breath. COMPARISON: None. TECHNIQUE: Single view of the chest is submitted. FINDINGS: Demonstrated are scattered senescent parenchymal change. Significant interval improvement in patchy bilateral infiltrates likely on the basis of improved pulm onary edema. There continues to be pulmonary venous congestion and mild interstitial edema with cardi omegaly. Hilar and mediastinal structures are within normal limits. Degenerative changes are seen of the dorsal spine. IMPRESSION: 1. Significant interval improvement in patchy bilateral infiltrates likely on the basis of improved pulmonary edema. There continues to be pulmonary venous congestion and mild interstitial edema with c ardiomegaly.
[2023-02-25] MEDS: IPRATROPIUM-ALBUTEROL 3 ML NEB INHALATION SCH ×4 (08:21→21:10)
[2023-02-25] MEDS ORDERED: amLODIPine 5 MG TAB PO SCH (09:00)
[2023-02-25] MEDS: predniSONE 20 MG TAB PO SCH (10:00)
[2023-02-25] MEDS: PANTOPRAZOLE 40 MG TABLET PO SCH (10:00)
[2023-02-25] MEDS: lisinopriL 20 MG TAB PO SCH (10:00)
[2023-02-25] MEDS: AZITHROMYCIN 500 MG in SODIUM CHLORIDE 0.9% 250 ML IVPB SCH (10:58)
[2023-02-25] MEDS: FUROSEMIDE 40 MG TAB PO SCH ×2 (11:08→16:02)
--- NOTE | 2023-02-25 11:25 | P.PN ---
Subjective Progress Note Date: 02/25/23 This is an 87-year-old female patient, living independently along with her daughter, presented to the hospital because of worsening shortness of breath. 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 The patient slept in the hospital and she woke up with significant shortness of breath. No cough. No sputum production. No chest tightness. No cardiac arrhythmias. No previous history of cardiac disease. No reported fever or chills. No swelling in lower extremities. The chest x-ray showing diffuse bilateral pulmonary infiltrates an d the patient was initially on a nonrebreather facemask and following that the patient was placed on a BiPAP at a pressure of 12/5 cm of water with an FiO2 of 100%. I weaned her down to 60% in the emergency department. I reviewed the chest x-ray is consistent with diffuse pulmonary infiltrates. Could be pneumonia. Could be also acute pulmonary edema. EKG showing normal sinus rhythm with left axis deviation. No significant ST segment changes. Rest of the blood work shows a WBC count of 10.2, glucose 4.5 and a platelet count of 223, BUN is at 20 with a creatinine of 0.8 and a sodium level is at 137. Lactic acid level was at 3.0. LFTs are normal. The viral screen including Covid 19, i nfluenza and RSV were all negative. ProBNP level is 7010. The patient was given IV antibiotics in the emergency department. She was started on steroids as the patient was found to be quite congested and bronchospastic. No history of smoking. No history of asthma or emphysema. She has history of Zenker's diverticulum and she has undergone previous esophageal surgery and on her chest x-ray that is an outpouching of the esophagus in the superior mediastinum. No reported aspiration. She has history of reflux. On 02/25/2023, the patient is doing well. After she arrived to the intensive c are unit, the patient was taken off the BiPAP and currently she is on 2 L. Rest x-ray shows marked improvement of bilateral pulmonary infiltrates. His cardiac megaly and some residual pulmonary vascular congestion. Echocardiogram was done, and the patient was found to have significant cardiomyopathy with an EF of around 20-25%. There is severe global hypokinesis. There is dilation of the LB and mild tricuspid regurgitation, pulmonary hypertension, there is moderate mitral regurgitation and [id number] aortic regurgitation. The patient otherwise is calm and comfortable. She is afebrile. The physical 11.3, hemoglobin is 10.2, BUN is at 20 with a creatinine of 1. LFTs are normal. Objective - Vital Signs Vital signs: Vital Signs Temp 98.1 F 02/25/23 00:00 Pulse 98 02/25/23 08:35 Resp 21 02/25/23 07:00 BP 111/81 02/25/23 07:00 Pulse Ox 93 L 02/25/23 07:00 FiO2 60 02/24/23 16:00 Intake & Output 02/24/23 02/25/23 02/25/23 18:59 06:59 18:59 Intake Total 890 990 20 Output Total 500 375 Balance 390 615 20 Weight 63.503 kg Intake: IV 140 640 20 0.9 NS 140 240 20 Magnesium Sulfate-D5w Pmx 300 1 gm In Dextrose/Water 1 100ml.bag @ 100 mls/hr IVPB Q1H [facility] Rx#: [id number] Piperacillin-Tazobactam 3 100 .375 gm In Sodium Chloride 0.9% 100 ml @ 25 mls/hr IVPB Q8HR [facility] Rx# :[id number] Intake, IV Titration 450 Amount Azithromycin 500 mg In 250 Sodium Chloride 0.9% 250 ml @ 250 mls/hr IVPB DAILY [facility] Rx#:[id number] Piperacillin-Tazobactam 3 200 .375 gm In Sodium Chloride 0.9% 100 ml @ 25 mls/hr IVPB Q8HR [facility] Rx# :[id number] Oral 300 350 Output: Urine 500 375 Other: Voiding Method External Catheter # Voids 1 - Exam Gen. appearance, the patient is calm and comfortable, she is currently on 2 L O2 nasal cannula Head exam was generally normal. There was no scleral icterus or corneal arcus. Mucous membranes were moist. Neck was supple and with bilateral jugular venous distension, thyromegaly, or carotid bruits. Carotids were easily palpable bilaterally. There was no adenopathy. Lungs sounds are diminished in the Lung bases Cardiac exam revealed the PMI to be normally situated and sized. The rhythm was regular and no extrasystoles were noted during several minutes of auscultation. The first and second heart sounds were normal and physiologic splitting of the second heart sound was noted. There were no murmurs, rubs, clicks, or gallops. Abdominal exam revealed normal bowel sounds. The abdomen was soft, non-tender, and without masses, organomegaly, or appreciable enlargement of the abdominal aorta. Examination of the extremities revealed easily palpable radial, femoral and pedal pulses. There was no cyanosis, clubbing or edema. Examination of the skin revealed no evidence of significant rashes, suspicious appearing nevi or other concerning lesions. Neurologically, the patient is awake and alert and the patient does not have any focal neurological deficit. Cranial nerves are essentially intact. - Labs CBC & Chem 7: 02/25/23 03:49 02/25/23 03:49 Labs: Abnormal Lab Results - Last 24 Hours (Table) 02/24/23 02/24/23 02/24/23 Range/Units 11:43 11:54 16:50 WBC (3.8-10.6) k/uL RBC (3.80-5.40) m/uL Hgb (11.4-16.0) gm/dL Hct (34.0-46.0) % Sodium (137-145) mmol/L BUN (7-17) mg/dL Glucose (74-99) mg/dL POC Glucose (mg/dL) 141 H 190 H (70-110) mg/dL Plasma Lactic Acid [place] 2.1 H* (0.7-2.0) mmol/L Magnesium (1.6-2.3) mg/dL 02/24/23 02/24/23 02/25/23 Range/Units 20:15 21:49 03:49 WBC 11.3 H (3.8-10.6) k/uL RBC 3.59 L (3.80-5.40) m/uL Hgb 10.2 L (11.4-16.0) gm/dL Hct 31.7 L (34.0-46.0) % Sodium (137-145) mmol/L BUN (7-17) mg/dL Glucose (74-99) mg/dL POC Glucose (mg/dL) 217 H (70-110) mg/dL Plasma Lactic Acid [place] 2.6 H* (0.7-2.0) mmol/L Magnesium (1.6-2.3) mg/dL 02/25/23 02/25/23 Range/Units 03:49 06:09 WBC (3.8-10.6) k/uL RBC (3.80-5.40) m/uL Hgb (11.4-16.0) gm/dL Hct (34.0-46.0) % Sodium 134 L (137-145) mmol/L BUN 20 H (7-17) mg/dL Glucose 137 H (74-99) mg/dL POC Glucose (mg/dL) 138 H (70-110) mg/dL Plasma Lactic Acid [place] (0.7-2.0) mmol/L Magnesium 2.4 H (1.6-2.3) mg/dL Assessment and Plan Plan: Acute hypoxic respiratory failure currently off the BiPAP. The patient is currently on 2 L of oxygen by nasal cannula. Producing adequate amount of urine output with diuresis. Acute shortness of breath secondary to above CHF with systolic heart failure and significant impairment of LV function with an EF of around 20-25% along with moderate MR, moderate aortic regurgitation. History of Zenker's diverticulum with surgical repair Chronic reflux Elevated proBNP level, rule out underlying CHF/pulmonary edema Hypertension Plan Taken off the BiPAP and the patient is currently on 2 L Cover the patient with DuoNeb updrafts Stop the IV Solu-Medrol and put the patient prednisone burst taper Stop the IV Lasix and put the patient on Lasix 40 mg by mouth twice a day Stop IV Zosyn Continue course of Zithromax Echocardiogram was noted and the patient was started on Zestril 20 mg by mouth d aily Continue amlodipine Cardiology consultation We'll continue to follow. We'll offer the patient DVT and GI prophylaxis.
[2023-02-25 11:33] LABS: Glucose,Whole Blood 142 mg/dL (70-110)
[2023-02-25] MEDS: METOPROLOL SUCCINATE (ER) 25 MG TAB.ER.24H PO SCH (12:41)
[2023-02-25 16:16] LABS: Glucose,Whole Blood 179 mg/dL (70-110)
--- NOTE | 2023-02-25 17:01 | P.PN ---
Subjective Progress Note Date: 02/25/23 Subjective: Patient is seen and examined at bedside. She reports feeling much better and less short of breath. On exam she has elevated JVD, and lower extremity edema. Her echo showed an EF of 20-25%. She appears to be in sinus tachycardia Synopsis Patient is a 87-year-old female with no prior cardiovascular history. She does have history of hypertension for which she takes amlodipine and lisinopril. This time patient presented to the hospital with worsening shortness of breath. Patient reports that she was apparently exposed to the chemicals using to eradicate disease. Patient had fumigation done yesterday at her home and she was asked to stay out on the house for at least 4 hours after the treatment. Patient slept at home and woke up significantly short of breath today. She denied having any cough or sputum production. She denied having any chest pain chest pressure. She denied having any palpitations. Patient denies having any symptoms of shortness of breath prior to this event. On admission she was noticed to have bilateral pulmonary congestion on chest x- ray. Her proBNP was elevated at 7000, WBC count was 10.2, platelets 228 3, BUN 20, creatinine 0.8. Her EKG shows normal sinus rhythm with LVH by voltage criteria. PHYSICAL EXAMINATION Vital signs reviewed. Head: Normocephalic. Eyes: Sclerae nonicteric. Neck: Brisk carotid upstroke, has elevated jugular venous pressure Lungs: No wheezing, mild rhonchi audible Heart: Regular rate and rhythm, S1-S2, no S3, no murmur or rub. Abdomen: Soft nontender, positive bowel sounds no organomegaly. Extremities: 1+ pitting edema in bilateral lower extremity up to mid augustine ASSESSMENT Acute hypoxic respiratory failure and shortness of breath Acute congestive heart failure X HFrEF with EF of 20-25%, etiology unknown at this time. Suspect nonischemic Mild wheezing likely due to bronchitis History of Zenker's diverticulum Essential hypertension PLAN Start metoprolol succinate 25 mg daily. Uptitrate as tolerated Continue lisinopril 20 mg daily. Uptitrate as tolerated Continue Lasix 40 mg PO twice a day Next step will be to add spironolactone Patient's creatinine is stable at 1.01. We will continue to monitor. Monitor electrolytes and potassium We had a Detailed discussion about further evaluation of patient's cardiomyopathy. Patient is DO NOT RESUSCITATE and DO NOT INTUBATE. She this time is not interested in pursuing invasive interventions. I agree with patients sentiments and would recommend medical management for cardiomyopathy at this time. I would recommend outpatient follow-up with me in clinic to reassess her in an nonacute situation and possibly do a stress test to evaluate the etiology. Goal is to optimize artery medications to maximum Objective - Vital Signs Vital signs: Vital Signs Temp 97.9 F 02/25/23 15:58 Pulse 96 02/25/23 15:58 Resp 15 02/25/23 15:58 BP 115/71 02/25/23 15:58 Pulse Ox 95 02/25/23 15:58 FiO2 60 02/24/23 16:00 Intake & Output 02/24/23 02/25/23 02/25/23 18:59 06:59 18:59 Intake Total 890 990 330 Output Total 500 375 100 Balance 390 615 230 Weight 63.503 kg Intake: IV 140 640 330 0.9 NS 140 240 80 Azithromycin 500 mg In 250 Sodium Chloride 0.9% 250 ml @ 250 mls/hr IVPB DAILY [facility] Rx#:[id number] Magnesium Sulfate-D5w Pmx 300 1 gm In Dextrose/Water 1 100ml.bag @ 100 mls/hr IVPB Q1H [facility] Rx#: [id number] Piperacillin-Tazobactam 3 100 .375 gm In Sodium Chloride 0.9% 100 ml @ 25 mls/hr IVPB Q8HR [facility] Rx# :[id number] Intake, IV Titration 450 Amount Azithromycin 500 mg In 250 Sodium Chloride 0.9% 250 ml @ 250 mls/hr IVPB DAILY [facility] Rx#:[id number] Piperacillin-Tazobactam 3 200 .375 gm In Sodium Chloride 0.9% 100 ml @ 25 mls/hr IVPB Q8HR [facility] Rx# :[id number] Oral 300 350 Output: Urine 500 375 100 Other: Voiding Method External Catheter External Catheter # Voids 1 1 # Bowel Movements 1 - Labs CBC & Chem 7: 02/25/23 03:49 02/25/23 03:49 Labs: Abnormal Lab Results - Last 24 Hours (Table) 02/24/23 02/24/23 02/25/23 Range/Units 20:15 21:49 03:49 WBC 11.3 H (3.8-10.6) k/uL RBC 3.59 L (3.80-5.40) m/uL Hgb 10.2 L (11.4-16.0) gm/dL Hct 31.7 L (34.0-46.0) % Sodium (137-145) mmol/L BUN (7-17) mg/dL Glucose (74-99) mg/dL POC Glucose (mg/dL) 217 H (70-110) mg/dL Plasma Lactic Acid [place] 2.6 H* (0.7-2.0) mmol/L Magnesium (1.6-2.3) mg/dL 02/25/23 02/25/23 02/25/23 Range/Units 03:49 06:09 11:31 WBC (3.8-10.6) k/uL RBC (3.80-5.40) m/uL Hgb (11.4-16.0) gm/dL Hct (34.0-46.0) % Sodium 134 L (137-145) mmol/L BUN 20 H (7-17) mg/dL Glucose 137 H (74-99) mg/dL POC Glucose (mg/dL) 138 H 142 H (70-110) mg/dL Plasma Lactic Acid [place] (0.7-2.0) mmol/L Magnesium 2.4 H (1.6-2.3) mg/dL 02/25/23 Range/Units 16:15 WBC (3.8-10.6) k/uL RBC (3.80-5.40) m/uL Hgb (11.4-16.0) gm/dL Hct (34.0-46.0) % Sodium (137-145) mmol/L BUN (7-17) mg/dL Glucose (74-99) mg/dL POC Glucose (mg/dL) 179 H (70-110) mg/dL Plasma Lactic Acid [place] (0.7-2.0) mmol/L Magnesium (1.6-2.3) mg/dL
[2023-02-25 18:08] LABS: Glucose,Whole Blood 179 mg/dL (70-110)
[2023-02-25 20:00] LABS: Glucose,Whole Blood 140 mg/dL (70-110)
[2023-02-26 05:56] LABS: Glucose,Whole Blood 112 mg/dL (70-110)
[2023-02-26] MEDS: PANTOPRAZOLE 40 MG TABLET PO SCH (06:15)
[2023-02-26] MEDS: INSULIN ASPART (NovoLOG) 100 UNIT/ML VIAL SQ SCH ×4 (06:18→20:30)
[2023-02-26] MEDS: IPRATROPIUM-ALBUTEROL 3 ML NEB INHALATION SCH ×4 (07:50→21:19)
[2023-02-26] MEDS: PIPERACILLIN-TAZOBACTAM 3.375 GM in SODIUM CHLORIDE 0.9% 100 ML IVPB SCH (07:57)
[2023-02-26] MEDS: AZITHROMYCIN 500 MG in SODIUM CHLORIDE 0.9% 250 ML IVPB SCH (08:12)
[2023-02-26] MEDS: lisinopriL 20 MG TAB PO SCH (08:12)
[2023-02-26] MEDS: FUROSEMIDE 40 MG TAB PO SCH (08:12)
[2023-02-26] MEDS: METOPROLOL SUCCINATE (ER) 25 MG TAB.ER.24H PO SCH (08:12)
[2023-02-26] MEDS: HEPARIN SODIUM,PORCINE 5,000 UNIT/ML 1 ML VIAL SQ SCH ×2 (08:12→16:46)
[2023-02-26] MEDS: predniSONE 20 MG TAB PO SCH (08:12)
[2023-02-26 08:17] LABS: Basophils % (A) 0 %; Eosinophils % (A) 0 %; HCT 31.8 % (34.0-46.0); HGB 10.2 gm/dL (11.4-16.0); Hypochromasia Slight; Lymphocytes % (A) 6 %; MCH 28.5 pg (25.0-35.0); MCHC 31.9 g/dL (31.0-37.0); MCV 89.2 fL (80.0-100.0); Mean Platelet Volume 8.2; Monocytes # (A) 0.7 k/uL (0-1.0); Monocytes % (A) 4 %; Neutrophils # (A) 13.6 k/uL (1.3-7.7); Neutrophils % (A) 88 %; Platelet Count 259 k/uL (150-450); RBC 3.57 m/uL (3.80-5.40); RDW 14.4 % (11.5-15.5); WBC 15.5 k/uL (3.8-10.6)
[2023-02-26 08:34] LABS: African American GFR (CKD) 51 (>60 ml/min/1.73 sqM); Anion Gap 6 mmol/L; Blood Urea Nitrogen 29 mg/dL (7-17); Calcium 8.6 mg/dL (8.4-10.2); Carbon Dioxide 29 mmol/L (22-30); Chloride 100 mmol/L (98-107); Glucose 91 mg/dL (74-99); Non-African American GFR(CKD) 44 (>60 ml/min/1.73 sqM); Potassium 4.2 mmol/L (3.5-5.1); Sodium 135 mmol/L (137-145)
--- NOTE | 2023-02-26 11:20 | P.PN ---
Subjective Progress Note Date: 02/25/23 Patient is a 87-year-old female with a known history of hypertension, GERD, history of esophageal surgery for Zenker's diverticulum presents to ER with complaints of worsening shortness of breath since yesterday evening. Patient's son is at bedside. Apparently she was exposed to fumigation for pest control at home yesterday afternoon. Since then she has not been feeling well since then. Her shortness of breath started yesterday evening. She slept inside the home and in the morning she became more short of breath which made her to come to ER. Otherwise patient denies any complaints of recent illnesses. No cough or sputum production. No chest pain or tightness. No nausea vomiting. No fever no chills. No leg swelling.Patient lives by herself and her son lives 4 blocks away. Chest x-ray showed bilateral patchy infiltrates may reflect pneumonia versus acute pulmonary edema. Correlate clinically. EKG showed sinus rhythm with sinus arrhythmia. On admission patient was hypoxic and was in respiratory failure requiring BiPAP. Laboratory showed WBC 10.2 hemoglobin 12.5 and platelets 223 Sodium 137 potassium 4.3 chloride 104 bicarb is 21 BUN 20 and creatinine 0.83 and blood sugar is 269. Lactic acid 3.0. Magnesium 1.7 and proBNP 7010. Liver enzymes are elevated albumin is 2.0. 02/25/2023 Patient is currently resting in the bed. Awake alert and oriented 3. Did not require BiPAP overnight and liters oxygen nasal cannula. No complaints of chest pain or shortness of breath. No nausea vomiting or abdominal pain or diarrhea. Patient is being continued on Lasix IV which is changed to by mouth today. Otherwise today echocardiogram showed ejection fraction 20-25% and global severe hypokinesis. Dilated left ventricle. Moderate mitral and [id number] aortic regurgitation. Mild TR and mild pulmonary hypertension. IV steroids changed to prednisone 40 mg daily. Pulmonary and cardiology is on board. Laboratory data showed WBC 11.3 hemoglobin 10.2 and platelets 220, sodium 134 potassium 4.0 chloride 101 bicarb is 24 BUN 20 and creatinine 1.01 and blood sugar is 137 and magnesium 2.4. Chest x-ray showed significant interval improvement in patchy bilateral infiltrates likely on the basis of improved pulmonary edema. Continues to be pulmonary venous congestion and mild interstitial edema with cardiomegaly. Current medications reviewed. Objective - Vital Signs Vital signs: Vital Signs Temp 98.2 F 02/25/23 12:00 Pulse 107 H 02/25/23 12:00 Resp 21 02/25/23 12:00 BP 117/72 02/25/23 12:00 Pulse Ox 96 02/25/23 12:00 FiO2 60 02/24/23 16:00 Intake & Output 02/24/23 02/25/23 02/25/23 18:59 06:59 18:59 Intake Total 890 990 330 Output Total 500 375 100 Balance 390 615 230 Weight 63.503 kg Intake: IV 140 640 330 0.9 NS 140 240 80 Azithromycin 500 mg In 250 Sodium Chloride 0.9% 250 ml @ 250 mls/hr IVPB DAILY [facility] Rx#:[id number] Magnesium Sulfate-D5w Pmx 300 1 gm In Dextrose/Water 1 100ml.bag @ 100 mls/hr IVPB Q1H [facility] Rx#: [id number] Piperacillin-Tazobactam 3 100 .375 gm In Sodium Chloride 0.9% 100 ml @ 25 mls/hr IVPB Q8HR [facility] Rx# :[id number] Intake, IV Titration 450 Amount Azithromycin 500 mg In 250 Sodium Chloride 0.9% 250 ml @ 250 mls/hr IVPB DAILY [facility] Rx#:[id number] Piperacillin-Tazobactam 3 200 .375 gm In Sodium Chloride 0.9% 100 ml @ 25 mls/hr IVPB Q8HR [facility] Rx# :[id number] Oral 300 350 Output: Urine 500 375 100 Other: Voiding Method External Catheter External Catheter # Voids 1 1 # Bowel Movements 1 - Exam PHYSICAL EXAMINATION: Patient is lying in the bed comfortably, no acute distress, awake alert and oriented.. HEENT: Normocephalic. Neck is supple. Pupils reactive. Nostrils clear. Oral cavity is moist. Neck reveals no JVD, carotid bruits, or thyromegaly. CHEST EXAMINATION: Trachea is central. Symmetrical expansion. Lung flanagan clear to auscultation and percussion. CARDIAC: Normal S1, S2 with no gallops. No murmurs ABDOMEN: Soft. Bowel sounds normal. No organomegaly. No abdominal bruits. Extremities: reveal no edema. No clubbing or cyanosis Neurologically awake, alert, oriented x3 with well-coordinated movements. No focal deficits noted Skin: No rash or skin lesions. Psychiatric: Coperative. Nonsuicidal Musculoskeletal: No joint swelling or deformity. Normal range of motion. - Labs CBC & Chem 7: 02/26/23 07:14 02/26/23 07:14 Labs: Abnormal Lab Results - Last 24 Hours (Table) 02/24/23 02/24/23 02/24/23 Range/Units 16:50 20:15 21:49 WBC (3.8-10.6) k/uL RBC (3.80-5.40) m/uL Hgb (11.4-16.0) gm/dL Hct (34.0-46.0) % Sodium (137-145) mmol/L BUN (7-17) mg/dL Glucose (74-99) mg/dL POC Glucose (mg/dL) 190 H 217 H (70-110) mg/dL Plasma Lactic Acid [place] 2.6 H* (0.7-2.0) mmol/L Magnesium (1.6-2.3) mg/dL 02/25/23 02/25/23 02/25/23 Range/Units 03:49 03:49 06:09 WBC 11.3 H (3.8-10.6) k/uL RBC 3.59 L (3.80-5.40) m/uL Hgb 10.2 L (11.4-16.0) gm/dL Hct 31.7 L (34.0-46.0) % Sodium 134 L (137-145) mmol/L BUN 20 H (7-17) mg/dL Glucose 137 H (74-99) mg/dL POC Glucose (mg/dL) 138 H (70-110) mg/dL Plasma Lactic Acid [place] (0.7-2.0) mmol/L Magnesium 2.4 H (1.6-2.3) mg/dL 02/25/23 Range/Units 11:31 WBC (3.8-10.6) k/uL RBC (3.80-5.40) m/uL Hgb (11.4-16.0) gm/dL Hct (34.0-46.0) % Sodium (137-145) mmol/L BUN (7-17) mg/dL Glucose (74-99) mg/dL POC Glucose (mg/dL) 142 H (70-110) mg/dL Plasma Lactic Acid [place] (0.7-2.0) mmol/L Magnesium (1.6-2.3) mg/dL Assessment and Plan Assessment: Acute hypoxic respiratory failure requiring BiPAP likely due to exposure to fumigating chemicals and pulmonary edema. Possible pneumonia-Aspiration less likely but patient does have Zenker's diverticulum and large outpouching of the superior mediastinum probably related to residual diverticulum shown on chest x-ray. Acute CHF with severely reduced ejection fraction 20-25% improved now..Cardiomyopathy. Nonischemic versus ischemic Lactic acidosis likely due to decreased tissue perfusion. 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 Was on BiPAP in the ER. Currently being titrated down to nasal cannula oxygen. 2 L via nasal cannula. IV Lasix and IV Solu-Medrol has been discontinued. Continue with oral Lasix 40 mg twice a day. and prednisone 5 daily. Continue with antibiotics in the form of Zosyn. 2-D echo cardiac exam showed severe uses infection. Cardiology recommends catheterization. Continue with Lasix, lisinopril and metoprolol. We'll start aspirin and ordered lipid panel. Pulmonary and cardiology is on board. Prognosis is guarded. Time with Patient: Greater than 30
[2023-02-26 11:40] LABS: Glucose,Whole Blood 129 mg/dL (70-110)
--- NOTE | 2023-02-26 11:44 | P.PN ---
Subjective Progress Note Date: 02/26/23 This is an 87-year-old female patient, living independently along with her daughter, presented to the hospital because of worsening shortness of breath. 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 The patient slept in the hospital and she woke up with significant shortness of breath. No cough. No sputum production. No chest tightness. No cardiac arrhythmias. No previous history of cardiac disease. No reported fever or chills. No swelling in lower extremities. The chest x-ray showing diffuse bilateral pulmonary infiltrates an d the patient was initially on a nonrebreather facemask and following that the patient was placed on a BiPAP at a pressure of 12/5 cm of water with an FiO2 of 100%. I weaned her down to 60% in the emergency department. I reviewed the chest x-ray is consistent with diffuse pulmonary infiltrates. Could be pneumonia. Could be also acute pulmonary edema. EKG showing normal sinus rhythm with left axis deviation. No significant ST segment changes. Rest of the blood work shows a WBC count of 10.2, glucose 4.5 and a platelet count of 223, BUN is at 20 with a creatinine of 0.8 and a sodium level is at 137. Lactic acid level was at 3.0. LFTs are normal. The viral screen including Covid 19, i nfluenza and RSV were all negative. ProBNP level is 7010. The patient was given IV antibiotics in the emergency department. She was started on steroids as the patient was found to be quite congested and bronchospastic. No history of smoking. No history of asthma or emphysema. She has history of Zenker's diverticulum and she has undergone previous esophageal surgery and on her chest x-ray that is an outpouching of the esophagus in the superior mediastinum. No reported aspiration. She has history of reflux. On 02/25/2023, the patient is doing well. After she arrived to the intensive c are unit, the patient was taken off the BiPAP and currently she is on 2 L. Rest x-ray shows marked improvement of bilateral pulmonary infiltrates. His cardiac megaly and some residual pulmonary vascular congestion. Echocardiogram was done, and the patient was found to have significant cardiomyopathy with an EF of around 20-25%. There is severe global hypokinesis. There is dilation of the LB and mild tricuspid regurgitation, pulmonary hypertension, there is moderate mitral regurgitation and [id number] aortic regurgitation. The patient otherwise is calm and comfortable. She is afebrile. The physical 11.3, hemoglobin is 10.2, BUN is at 20 with a creatinine of 1. LFTs are normal. On 02/26/2023, the patient remains on 2 L of oxygen by nasal cannula. Calm and comfortable. No signs of any respiratory distress. Awaiting further recommendations from cardiology regarding her cardiomyopathy. She is on oral Lasix 40 mg by mouth twice a day. She is also on Zestril 20 mg by mouth daily. She is completing a prednisone burst taper. Last from today were noted. BUN is at 20 0.1. Hemoglobin is at 10.2 Objective - Vital Signs Vital signs: Vital Signs Temp 97.8 F 02/26/23 07:15 Pulse 84 02/26/23 08:01 Resp 16 02/26/23 07:15 BP 102/56 02/26/23 07:15 Pulse Ox 95 02/26/23 07:50 FiO2 60 02/24/23 16:00 Intake & Output 02/25/23 02/26/23 02/26/23 18:59 06:59 18:59 Intake Total 1080 118 Output Total 450 700 Balance 630 -700 118 Intake: IV 330 0.9 NS 80 Azithromycin 500 mg In 250 Sodium Chloride 0.9% 250 ml @ 250 mls/hr IVPB DAILY [facility] Rx#:[id number] Oral 750 118 Output: Urine 450 700 Other: Voiding Method Bedside Commode Bedside Commode Bedside Commode # Voids 1 1 # Bowel Movements 1 1 - Exam Gen. appearance, the patient is calm and comfortable, she is currently on 2 L O2 nasal cannula Head exam was generally normal. There was no scleral icterus or corneal arcus. Mucous membranes were moist. Neck was supple and with bilateral jugular venous distension, thyromegaly, or carotid bruits. Carotids were easily palpable bilaterally. There was no adenopathy. Lungs sounds are diminished in the Lung bases Cardiac exam revealed the PMI to be normally situated and sized. The rhythm was regular and no extrasystoles were noted during several minutes of auscultation. The first and second heart sounds were normal and physiologic splitting of the second heart sound was noted. There were no murmurs, rubs, clicks, or gallops. Abdominal exam revealed normal bowel sounds. The abdomen was soft, non-tender, and without masses, organomegaly, or appreciable enlargement of the abdominal aorta. Examination of the extremities revealed easily palpable radial, femoral and pedal pulses. There was no cyanosis, clubbing or edema. Examination of the skin revealed no evidence of significant rashes, suspicious appearing nevi or other concerning lesions. Neurologically, the patient is awake and alert and the patient does not have any focal neurological deficit. Cranial nerves are essentially intact. - Labs CBC & Chem 7: 02/26/23 07:14 02/26/23 07:14 Labs: Abnormal Lab Results - Last 24 Hours (Table) 02/25/23 02/25/23 02/25/23 Range/Units 11:31 16:15 18:07 WBC (3.8-10.6) k/uL RBC (3.80-5.40) m/uL Hgb (11.4-16.0) gm/dL Hct (34.0-46.0) % Neutrophils # (1.3-7.7) k/uL Sodium (137-145) mmol/L BUN (7-17) mg/dL Creatinine (0.52-1.04) mg/dL POC Glucose (mg/dL) 142 H 179 H 179 H (70-110) mg/dL 02/25/23 02/26/23 02/26/23 Range/Units 20:00 05:54 07:14 WBC 15.5 H (3.8-10.6) k/uL RBC 3.57 L (3.80-5.40) m/uL Hgb 10.2 L (11.4-16.0) gm/dL Hct 31.8 L (34.0-46.0) % Neutrophils # 13.6 H (1.3-7.7) k/uL Sodium (137-145) mmol/L BUN (7-17) mg/dL Creatinine (0.52-1.04) mg/dL POC Glucose (mg/dL) 140 H 112 H (70-110) mg/dL 02/26/23 Range/Units 07:14 WBC (3.8-10.6) k/uL RBC (3.80-5.40) m/uL Hgb (11.4-16.0) gm/dL Hct (34.0-46.0) % Neutrophils # (1.3-7.7) k/uL Sodium 135 L (137-145) mmol/L BUN 29 H (7-17) mg/dL Creatinine 1.11 H (0.52-1.04) mg/dL POC Glucose (mg/dL) (70-110) mg/dL Microbiology - Last 24 Hours (Table) 02/24/23 10:35 Blood Culture - Preliminary Blood 02/24/23 10:25 Blood Culture - Preliminary Blood Assessment and Plan Plan: Acute hypoxic respiratory failure currently off the BiPAP. The patient is currently on 2 L of oxygen by nasal cannula. Producing adequate amount of urine output with diuresis. Acute shortness of breath secondary to above CHF with systolic heart failure and significant impairment of LV function with an EF of around 20-25% along with moderate MR, moderate aortic regurgitation. History of Zenker's diverticulum with surgical repair Chronic reflux Elevated proBNP level, rule out underlying CHF/pulmonary edema Hypertension Plan Taken off the BiPAP and the patient is currently on 2 L, and the patient's has a stable oxygenation Cover the patient with DuoNeb updrafts Continue prednisone burst taper Continue Lasix 40 mg by mouth twice a day Continue course of Zithromax Echocardiogram was noted and the patient was started on Zestril 20 mg by mouth daily Continue amlodipine Cardiology consultation We'll continue to follow. We'll offer the patient DVT and GI prophylaxis.
--- NOTE | 2023-02-26 13:08 | P.PN ---
Subjective Progress Note Date: 02/26/23 Subjective: Patient is seen and examined at bedside. She reports feeling much better and less short of breath. It is normal lower extremity edema is resolved. Chest auscultation shows good air entry with no crackles Synopsis Patient is a 87-year-old female with no prior cardiovascular history. She does have history of hypertension for which she takes amlodipine and lisinopril. This time patient presented to the hospital with worsening shortness of breath. Patient reports that she was apparently exposed to the chemicals using to eradicate disease. Patient had fumigation done yesterday at her home and she was asked to stay out on the house for at least 4 hours after the treatment. Patient slept at home and woke up significantly short of breath today. She denied having any cough or sputum production. She denied having any chest pain chest pressure. She denied having any palpitations. Patient denies having any symptoms of shortness of breath prior to this event. On admission she was noticed to have bilateral pulmonary congestion on chest x- ray. Her proBNP was elevated at 7000, WBC count was 10.2, platelets 228 3, BUN 20, creatinine 0.8. Her EKG shows normal sinus rhythm with LVH by voltage criteria. PHYSICAL EXAMINATION Vital signs reviewed. Head: Normocephalic. Eyes: Sclerae nonicteric. Neck: Brisk carotid upstroke, no jvd Lungs: No wheezing, no rhonchi, clear to auscultate Heart: Regular rate and rhythm, S1-S2, no S3, no murmur or rub. Abdomen: Soft nontender, positive bowel sounds no organomegaly. Extremities: No edema in bilateral lower extremity ASSESSMENT Acute hypoxic respiratory failure and shortness of breath Acute congestive heart failure X HFrEF with EF of 20-25%, etiology unknown at this time. Suspect nonischemic Mild wheezing likely due to bronchitis History of Zenker's diverticulum Essential hypertension PLAN Start metoprolol succinate 25 mg daily. Continue lisinopril 20 mg daily. Reduce Lasix to 40 mg by mouth daily Patient's creatinine is stable at 1.1 yesterday was 1.01. We will continue to monitor. Monitor electrolytes and potassium. We had a Detailed discussion about further evaluation of patient's cardiomyopathy. Patient is DO NOT RESUSCITATE and DO NOT INTUBATE. She this time is not interested in pursuing invasive interventions. I agree with patients sentiments and would recommend medical management for cardiomyopathy at this time. I would recommend outpatient follow-up with me in clinic to reassess her in an nonacute situation and possibly do a stress test to evaluate the etiology. Goal is to optimize artery medications to maximum If creatinine is stable tomorrow, patient should be related to go home on cu rrent cardiac medications Objective - Vital Signs Vital signs: Vital Signs Temp 97.9 F 02/26/23 11:50 Pulse 67 02/26/23 11:50 Resp 16 02/26/23 11:50 BP 96/49 02/26/23 11:50 Pulse Ox 95 02/26/23 11:50 FiO2 60 02/24/23 16:00 Intake & Output 02/25/23 02/26/23 02/26/23 18:59 06:59 18:59 Intake Total 1080 118 Output Total 450 700 800 Balance 118 -700 -822 Intake: IV 330 0.9 NS 80 Azithromycin 500 mg In 250 Sodium Chloride 0.9% 250 ml @ 250 mls/hr IVPB DAILY [facility] Rx#:[id number] Oral 750 118 Output: Urine 450 700 800 Other: Voiding Method Bedside Commode Bedside Commode Bedside Commode # Voids 1 1 # Bowel Movements 1 1 - Labs CBC & Chem 7: 02/26/23 07:14 02/26/23 07:14 Labs: Abnormal Lab Results - Last 24 Hours (Table) 02/25/23 02/25/23 02/25/23 Range/Units 16:15 18:07 20:00 WBC (3.8-10.6) k/uL RBC (3.80-5.40) m/uL Hgb (11.4-16.0) gm/dL Hct (34.0-46.0) % Neutrophils # (1.3-7.7) k/uL Sodium (137-145) mmol/L BUN (7-17) mg/dL Creatinine (0.52-1.04) mg/dL POC Glucose (mg/dL) 179 H 179 H 140 H (70-110) mg/dL 02/26/23 02/26/23 02/26/23 Range/Units 05:54 07:14 07:14 WBC 15.5 H (3.8-10.6) k/uL RBC 3.57 L (3.80-5.40) m/uL Hgb 10.2 L (11.4-16.0) gm/dL Hct 31.8 L (34.0-46.0) % Neutrophils # 13.6 H (1.3-7.7) k/uL Sodium 135 L (137-145) mmol/L BUN 29 H (7-17) mg/dL Creatinine 1.11 H (0.52-1.04) mg/dL POC Glucose (mg/dL) 112 H (70-110) mg/dL 02/26/23 Range/Units 11:38 WBC (3.8-10.6) k/uL RBC (3.80-5.40) m/uL Hgb (11.4-16.0) gm/dL Hct (34.0-46.0) % Neutrophils # (1.3-7.7) k/uL Sodium (137-145) mmol/L BUN (7-17) mg/dL Creatinine (0.52-1.04) mg/dL POC Glucose (mg/dL) 129 H (70-110) mg/dL Microbiology - Last 24 Hours (Table) 02/24/23 10:35 Blood Culture - Preliminary Blood 02/24/23 10:25 Blood Culture - Preliminary Blood
[2023-02-26 16:32] LABS: Glucose,Whole Blood 166 mg/dL (70-110)
[2023-02-26 19:59] LABS: Glucose,Whole Blood 192 mg/dL (70-110)
[2023-02-26] MEDS: MELATONIN 3 MG TABLET PO SCH (20:30)
--- NOTE | 2023-02-26 23:51 | P.PN ---
Subjective Progress Note Date: 02/26/23 Patient is a 87-year-old female with a known history of hypertension, GERD, history of esophageal surgery for Zenker's diverticulum presents to ER with complaints of worsening shortness of breath since yesterday evening. Patient's son is at bedside. Apparently she was exposed to fumigation for pest control at home yesterday afternoon. Since then she has not been feeling well since then. Her shortness of breath started yesterday evening. She slept inside the home and in the morning she became more short of breath which made her to come to ER. Otherwise patient denies any complaints of recent illnesses. No cough or sputum production. No chest pain or tightness. No nausea vomiting. No fever no chills. No leg swelling.Patient lives by herself and her son lives 4 blocks away. Chest x-ray showed bilateral patchy infiltrates may reflect pneumonia versus acute pulmonary edema. Correlate clinically. EKG showed sinus rhythm with sinus arrhythmia. On admission patient was hypoxic and was in respiratory failure requiring BiPAP. Laboratory showed WBC 10.2 hemoglobin 12.5 and platelets 223 Sodium 137 potassium 4.3 chloride 104 bicarb is 21 BUN 20 and creatinine 0.83 and blood sugar is 269. Lactic acid 3.0. Magnesium 1.7 and proBNP 7010. Liver enzymes are elevated albumin is 2.0. 02/25/2023 Patient is currently resting in the bed. Awake alert and oriented 3. Did not require BiPAP overnight and liters oxygen nasal cannula. No complaints of chest pain or shortness of breath. No nausea vomiting or abdominal pain or diarrhea. Patient is being continued on Lasix IV which is changed to by mouth today. Otherwise today echocardiogram showed ejection fraction 20-25% and global severe hypokinesis. Dilated left ventricle. Moderate mitral and [id number] aortic regurgitation. Mild TR and mild pulmonary hypertension. IV steroids changed to prednisone 40 mg daily. Pulmonary and cardiology is on board. Laboratory data showed WBC 11.3 hemoglobin 10.2 and platelets 220, sodium 134 potassium 4.0 chloride 101 bicarb is 24 BUN 20 and creatinine 1.01 and blood sugar is 137 and magnesium 2.4. Chest x-ray showed significant interval improvement in patchy bilateral infiltrates likely on the basis of improved pulmonary edema. Continues to be pulmonary venous congestion and mild interstitial edema with cardiomegaly. 02/26/2023 Patient is currently resting in the bed. Awake alert and oriented x3. Feels better. Currently requiring 2 L oxygen via nasal cannula. Patient is being continued on prednisone 40 mg daily and also Lasix 40 mg twice daily. Otherwise denies any chest pain. No leg swelling. Patient does not want to proceed with cardiac catheterization. Patient states that she had complications with anesthesia previously. Cardiology and pulmonary is on board. Laboratory data showed WBC 15.5 hemoglobin 10.3 and platelets 259 Sodium 135 potassium 4.2 chloride 100 bicarb is 29 BUN 29 creatinine 1.11 and blood sugar 91 and calcium 8.6. Current medications reviewed. Objective - Vital Signs Vital signs: Vital Signs Temp 97.8 F 02/26/23 07:15 Pulse 80 02/26/23 11:09 Resp 16 02/26/23 07:15 BP 102/56 02/26/23 07:15 Pulse Ox 95 02/26/23 07:50 FiO2 60 02/24/23 16:00 Intake & Output 02/25/23 02/26/23 02/26/23 18:59 06:59 18:59 Intake Total 1080 118 Output Total 450 700 Balance 630 -700 118 Intake: IV 330 0.9 NS 80 Azithromycin 500 mg In 250 Sodium Chloride 0.9% 250 ml @ 250 mls/hr IVPB DAILY [facility] Rx#:[id number] Oral 750 118 Output: Urine 450 700 Other: Voiding Method Bedside Commode Bedside Commode Bedside Commode # Voids 1 1 # Bowel Movements 1 1 - Exam PHYSICAL EXAMINATION: Patient is lying in the bed comfortably, no acute distress, awake alert and oriented.. HEENT: Normocephalic. Neck is supple. Pupils reactive. Nostrils clear. Oral cavity is moist. Neck reveals no JVD, carotid bruits, or thyromegaly. CHEST EXAMINATION: Trachea is central. Symmetrical expansion. Lung flanagan clear to auscultation and percussion. CARDIAC: Normal S1, S2 with no gallops. No murmurs ABDOMEN: Soft. Bowel sounds normal. No organomegaly. No abdominal bruits. Extremities: reveal no edema. No clubbing or cyanosis Neurologically awake, alert, oriented x3 with well-coordinated movements. No focal deficits noted Skin: No rash or skin lesions. Psychiatric: Coperative. Nonsuicidal Musculoskeletal: No joint swelling or deformity. Normal range of motion. - Labs CBC & Chem 7: 02/26/23 07:14 02/26/23 07:14 Labs: Abnormal Lab Results - Last 24 Hours (Table) 02/25/23 02/25/23 02/25/23 Range/Units 11:31 16:15 18:07 WBC (3.8-10.6) k/uL RBC (3.80-5.40) m/uL Hgb (11.4-16.0) gm/dL Hct (34.0-46.0) % Neutrophils # (1.3-7.7) k/uL Sodium (137-145) mmol/L BUN (7-17) mg/dL Creatinine (0.52-1.04) mg/dL POC Glucose (mg/dL) 142 H 179 H 179 H (70-110) mg/dL 02/25/23 02/26/23 02/26/23 Range/Units 20:00 05:54 07:14 WBC 15.5 H (3.8-10.6) k/uL RBC 3.57 L (3.80-5.40) m/uL Hgb 10.2 L (11.4-16.0) gm/dL Hct 31.8 L (34.0-46.0) % Neutrophils # 13.6 H (1.3-7.7) k/uL Sodium (137-145) mmol/L BUN (7-17) mg/dL Creatinine (0.52-1.04) mg/dL POC Glucose (mg/dL) 140 H 112 H (70-110) mg/dL 02/26/23 Range/Units 07:14 WBC (3.8-10.6) k/uL RBC (3.80-5.40) m/uL Hgb (11.4-16.0) gm/dL Hct (34.0-46.0) % Neutrophils # (1.3-7.7) k/uL Sodium 135 L (137-145) mmol/L BUN 29 H (7-17) mg/dL Creatinine 1.11 H (0.52-1.04) mg/dL POC Glucose (mg/dL) (70-110) mg/dL Microbiology - Last 24 Hours (Table) 02/24/23 10:35 Blood Culture - Preliminary Blood 02/24/23 10:25 Blood Culture - Preliminary Blood Assessment and Plan Assessment: Acute hypoxic respiratory failure requiring BiPAP likely due to exposure to fumigating chemicals and pulmonary edema. Possible pneumonia-Aspiration less likely but patient does have Zenker's diverticulum and large outpouching of the superior mediastinum probably related to residual diverticulum shown on chest x-ray. Acute CHF with severely reduced ejection fraction 20-25% improved now..Cardiomyopathy. Nonischemic versus ischemic, new onset Lactic acidosis likely due to decreased tissue perfusion. 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 Was on BiPAP in the ER. Currently being titrated down to nasal cannula oxygen. 2 L via nasal cannula. IV Lasix and IV Solu-Medrol has been discontinued. Continue with oral Lasix 40 mg twice a day. and prednisone 40mg daily. Continue with antibiotics in the form of Zosyn. 2-D echo cardiac exam showed severe uses infection. Cardiology recommends catheterization. Continue with Lasix, lisinopril and metoprolol. We'll start aspirin and ordered lipid panel. Pulmonary and cardiology is on board. Prognosis is guarded. Time with Patient: Greater than 30
[2023-02-27] MEDS: HEPARIN SODIUM,PORCINE 5,000 UNIT/ML 1 ML VIAL SQ SCH ×2 (00:38→07:58)
[2023-02-27 06:07] LABS: Glucose,Whole Blood 103 mg/dL (70-110)
[2023-02-27] MEDS: INSULIN ASPART (NovoLOG) 100 UNIT/ML VIAL SQ SCH ×2 (06:48→11:48)
[2023-02-27] MEDS: PANTOPRAZOLE 40 MG TABLET PO SCH (06:54)
[2023-02-27] MEDS: IPRATROPIUM-ALBUTEROL 3 ML NEB INHALATION SCH ×2 (07:50→11:48)
[2023-02-27 07:57] VITALS: RESP 17; TEMP 97.5
[2023-02-27] MEDS: METOPROLOL SUCCINATE (ER) 25 MG TAB.ER.24H PO SCH (07:58)
[2023-02-27] MEDS: lisinopriL 20 MG TAB PO SCH (07:58)
[2023-02-27] MEDS: predniSONE 20 MG TAB PO SCH (07:58)
[2023-02-27] MEDS ORDERED: ASPIRIN 81 MG PO SCH (09:00)
[2023-02-27] MEDS ORDERED: FUROSEMIDE 40 MG TAB PO SCH (09:00)
[2023-02-27 09:32] LABS: African American GFR (CKD) 50 (>60 ml/min/1.73 sqM); Anion Gap 8 mmol/L; Blood Urea Nitrogen 29 mg/dL (7-17); Calcium 8.5 mg/dL (8.4-10.2); Carbon Dioxide 31 mmol/L (22-30); Chloride 96 mmol/L (98-107); Glucose 138 mg/dL (74-99); Non-African American GFR(CKD) 43 (>60 ml/min/1.73 sqM); Potassium 3.8 mmol/L (3.5-5.1); Sodium 135 mmol/L (137-145)
--- NOTE | 2023-02-27 10:07 | XR ---
EXAMINATION TYPE: XR chest 1V portable DATE OF EXAM: 02/27/2023 9:55 AM CLINICAL INDICATION:Female, 87 years old with history of shortness of breath; COMPARISON: Chest radiographs from 02/25/2023 TECHNIQUE: XR chest 1V portable Frontal view of the chest. FINDINGS: Lungs/Pleura: There is no evidence of pleural effusion, focal consolidation, or pneumothorax. Pulmonary vascularity: Unremarkable. Heart/mediastinum: Cardiomediastinal silhouette is enlarged and stable. Musculoskeletal: No acute osseous pathology. IMPRESSION: Chronic changes without acute pulmonary process. No significant change from prior.
--- NOTE | 2023-02-27 11:18 | P.PN ---
Subjective HISTORY OF PRESENT ILLNESS: 02/26/2023 Patient is a 87-year-old female with no prior cardiovascular history. She does have history of hypertension for which she takes amlodipine and lisinopril. This time patient presented to the hospital with worsening shortness of breath. Patient reports that she was apparently exposed to the chemicals using to eradicate disease. Patient had fumigation done yesterday at her home and she was asked to stay out on the house for at least 4 hours after the treatment. Patient slept at home and woke up significantly short of breath today. She denied having any cough or sputum production. She denied having any chest pain chest pressure. She denied having any palpitations. Patient denies having any symptoms of shortness of breath prior to this event. On admission she was noticed to have bilateral pulmonary congestion on chest x- ray. Her proBNP was elevated at 7000, WBC count was 10.2, platelets 228 3, BUN 20, creatinine 0.8. Her EKG shows normal sinus rhythm with LVH by voltage criteria. 02/27/2023 Patient examined this morning at the bedside. Patient denies chest pain or pressure. She denies shortness of breath. She remains on oral diuretics. Creatinine 1.14. Vital signs are stable. PHYSICAL EXAM: VITAL SIGNS: Reviewed. GENERAL: Well-developed in no acute distress. NECK: Supple. No JVD or thyromegaly LUNGS: Respirations even and unlabored. Lungs essentially clear to auscultation bilaterally. HEART: Regular rate and rhythm. S1 and S2 heard. EXTREMITIES: Normal range of motion. No clubbing or cyanosis. Peripheral pulses intact. No lower extremity edema ASSESSMENT: Shortness of breath Acute hypoxic respiratory failure Acute heart failure with reduced ejection fraction Cardiomyopathy, ejection fraction 20-25%, ischemic versus nonischemic Bronchitis History of Zenker's diverticulum Hypertension PLAN: Continue current cardiac medications Patient is stable for discharge home today from a cardiac standpoint She is to follow up on an outpatient basis with Dr. Dueñas Nurse practitioner note has been reviewed by physician. Signing provider agrees with the documented findings, assessment, and plan of care. Objective - Vital Signs Vital signs: Vital Signs Temp 97.5 F L 02/27/23 07:55 Pulse 68 02/27/23 08:06 Resp 17 02/27/23 07:55 BP 142/63 02/27/23 07:55 Pulse Ox 94 L 02/27/23 07:55 FiO2 60 02/24/23 16:00 Intake & Output 02/26/23 02/27/23 02/27/23 18:59 06:59 18:59 Intake Total 118 538 Output Total 1600 1200 800 Balance -1482 -1200 -262 Intake: Oral 118 538 Output: Urine 1600 1200 800 Other: Voiding Method Bedside Commode Bedside Commode Bedside Commode # Voids 1 # Bowel Movements 1 - Labs CBC & Chem 7: 02/26/23 07:14 02/27/23 08:33 Labs: Abnormal Lab Results - Last 24 Hours (Table) 02/26/23 02/26/23 02/26/23 Range/Units 11:38 16:29 19:58 Sodium (137-145) mmol/L Chloride (98-107) mmol/L Carbon Dioxide (22-30) mmol/L BUN (7-17) mg/dL Creatinine (0.52-1.04) mg/dL Glucose (74-99) mg/dL POC Glucose (mg/dL) 129 H 166 H 192 H (70-110) mg/dL 02/27/23 Range/Units 08:33 Sodium 135 L (137-145) mmol/L Chloride 96 L (98-107) mmol/L Carbon Dioxide 31 H (22-30) mmol/L BUN 29 H (7-17) mg/dL Creatinine 1.14 H (0.52-1.04) mg/dL Glucose 138 H (74-99) mg/dL POC Glucose (mg/dL) (70-110) mg/dL Microbiology - Last 24 Hours (Table) 02/24/23 10:35 Blood Culture - Preliminary Blood 02/24/23 10:25 Blood Culture - Preliminary Blood
[2023-02-27 11:31] VITALS: BP 117/60
[2023-02-27 11:35] LABS: Glucose,Whole Blood 124 mg/dL (70-110)
[2023-02-27 12:04] VITALS: PULSE 80
--- NOTE | 2023-02-27 12:21 | P.EN ---
Patient will require a nebulizer on discharge for continue DuoNeb treatments 4 times daily to manage COPD
--- NOTE | 2023-02-27 13:03 | P.PN ---
Subjective Progress Note Date: 02/27/23 Principal diagnosis: Acute hypoxic respiratory failure secondary to acute systolic congestive heart failure This is an 87-year-old female patient, living independently along with her daughter, presented to the hospital because of worsening shortness of breath. 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 The patient slept in the hospital and she woke up with significant shortness of breath. No cough. No sputum production. No chest tightness. No cardiac arrhythmias. No previous history of cardiac disease. No reported fever or chills. No swelling in lower extremities. The chest x-ray showing diffuse bilateral pulmonary infiltrates and the patient was initially on a nonrebreather facemask and following that the patient was placed on a BiPAP at a pressure of 12/5 cm of water with an FiO2 of 100%. I weaned her down to 60% in the emergency department. I reviewed the chest x-ray is consistent with diffuse pulmonary infiltrates. Could be pneumonia. Could be also acute pulmonary edema. EKG showing normal sinus rhythm with left axis deviation. No significant ST segment changes. Rest of the blood work shows a WBC count of 10.2, glucose 4.5 and a platelet count of 223, BUN is at 20 with a creatinine of 0.8 and a sodium level is at 137. Lactic acid level was at 3.0. LFTs are normal. The viral screen including Covid 19, influenza and RSV were all negative. ProBNP level is 7010. The patient was given IV antibiotics in the emergency department. She was started on steroids as the patient was found to be quite congested and bronchospastic. No history of smoking. No history of asthma or emphysema. She has history of Zenker's diverticulum and she has undergone previous esophageal surgery and on her chest x-ray that is an outpouching of the esophagus in the superior mediastinum. No reported aspiration. She has history of reflux. On 02/25/2023, the patient is doing well. After she arrived to the intensive care unit, the patient was taken off the BiPAP and currently she is on 2 L. Rest x-ray shows marked improvement of bilateral pulmonary infiltrates. His cardiac megaly and some residual pulmonary vascular congestion. Echocardiogram was done, and the patient was found to have significant cardiomyopathy with an EF of around 20-25%. There is severe global hypokinesis. There is dilation of the LB and mild tricuspid regurgitation, pulmonary hypertension, there is moderate mitral regurgitation and [id number] aortic regurgitation. The patient otherwise is calm and comfortable. She is afebrile. The physical 11.3, hemoglobin is 10.2, BUN is at 20 with a creatinine of 1. LFTs are normal. On 02/26/2023, the patient remains on 2 L of oxygen by nasal cannula. Calm and comfortable. No signs of any respiratory distress. Awaiting further recommendations from cardiology regarding her cardiomyopathy. She is on oral Lasix 40 mg by mouth twice a day. She is also on Zestril 20 mg by mouth daily. She is completing a prednisone burst taper. Last from today were noted. BUN is at 20 0.1. Hemoglobin is at 10.2 Patient was reevaluated today on 02/27/2023, patient is comfortable, she is on room air, does not seem to be in any distress, patient remains on diuretics, remains on prednisone, bronchodilators, doing well, and I guess the patient is being considered for discharge planning today. We will clear the patient for discharge if cleared by cardiology. Labs today were reviewed she has a relatively normal electrolytes BUN is 29 and creatinine 1.14 Objective - Vital Signs Vital signs: Vital Signs Temp 97.5 F L 02/27/23 07:55 Pulse 80 02/27/23 12:00 Resp 17 02/27/23 11:28 BP 117/60 02/27/23 11:28 Pulse Ox 96 02/27/23 11:28 FiO2 60 02/24/23 16:00 Intake & Output 02/26/23 02/27/23 02/27/23 18:59 06:59 18:59 Intake Total 118 538 Output Total 1600 1200 800 Balance -1482 -1200 -262 Intake: Oral 118 538 Output: Urine 1600 1200 800 Other: Voiding Method Bedside Commode Bedside Commode Bedside Commode # Voids 1 # Bowel Movements 1 - Exam Physical Exam: Revealed 87-year-old female in no distress on room air Head: Atraumatic, normocephalic. HEENT:[Neck is supple.] [No neck masses.] [No thyromegaly.] [No JVD.] Chest: [Clear throughout, no crackles, no rhonchi, no wheezes.] Cardiac Exam: [Normal S1 and S2, no S3 gallop, no murmur.] Abdomen: [Soft, nontender, no megaly, no rebound, no guarding, normal bowel sounds.] Extremities: [No clubbing, no edema, no cyanosis.] Neurological Exam: [No focal neurologic deficit.] Alert oriented 3. Psychiatric: Normal mood affect and normal mental status examination. Skin: No rash - Labs CBC & Chem 7: 02/26/23 07:14 02/27/23 08:33 Labs: Abnormal Lab Results - Last 24 Hours (Table) 02/26/23 02/26/23 02/27/23 Range/Units 16:29 19:58 08:33 Sodium 135 L (137-145) mmol/L Chloride 96 L (98-107) mmol/L Carbon Dioxide 31 H (22-30) mmol/L BUN 29 H (7-17) mg/dL Creatinine 1.14 H (0.52-1.04) mg/dL Glucose 138 H (74-99) mg/dL POC Glucose (mg/dL) 166 H 192 H (70-110) mg/dL 02/27/23 Range/Units 11:33 Sodium (137-145) mmol/L Chloride (98-107) mmol/L Carbon Dioxide (22-30) mmol/L BUN (7-17) mg/dL Creatinine (0.52-1.04) mg/dL Glucose (74-99) mg/dL POC Glucose (mg/dL) 124 H (70-110) mg/dL Microbiology - Last 24 Hours (Table) 02/24/23 10:35 Blood Culture - Preliminary Blood 02/24/23 10:25 Blood Culture - Preliminary Blood Assessment and Plan Assessment: Impression: Acute hypoxic respiratory failure secondary to acute systolic congestive heart failure Acute systolic congestive heart failure History of Zenker's diverticulum with surgical repair Benign essential hypertension History of COPD/inactive Recommendation: Continue present treatment plan including bronchodilators for underlying COPD although it is not active Continue the prednisone tapering Chest x-ray is significantly improved compared to admission chest x-ray Continue Lasix Continue Zestril and amlodipine Will clear for discharge if cleared by cardiology. Follow-up on outpatient basis Time with Patient: Less than 30
[2023-02-27 14:37] LABS: Chol/HDL Ratio 3.07 Ratio; LDL Cholesterol,Calculated 95.2 mg/dL (0.0-131.0)
--- NOTE | 2023-02-27 23:34 | DS ---
DISCHARGE SUMMARY FINAL DIAGNOSES: 1. Possible aspiration pneumonia. 2. Chronic obstructive pulmonary disease acute exacerbation. 3. Congestive heart failure, [id number] dysfunction, ejection fraction 20% to 25%. 4. Hypertension. 5. Multiple medical issues. HISTORY OF PRESENT ILLNESS: This is an 87-year-old woman, who was admitted with shortness of breath, possibly multifactorial. 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 The patient was treated symptomatically. Chest x-ray was stable. Multiple consultants saw the patient and cleared the patient for discharge. PHYSICAL EXAMINATION: VITAL SIGNS: Stable. CARDIOVASCULAR: S1 and S2. RESPIRATORY: A few scattered rhonchi. DISCHARGE ADVICE AND MEDICATIONS: Please refer to the discharge advice and medications for further information. The patient will be discharged on: 1. Aspirin 81 mg. 2. DuoNeb q.i.d. and p.r.n. 3. Prednisone taper. 4. Metoprolol. 5. Omeprazole. 6. Symbicort. FOLLOWUP: Follow up with Cardiology and primary physician. VIRIDIANA / MOISES: [id number] /
== END 2023-02-27 14:42 | disposition home or self-care (01) | DRG 205 ==
LOC: EC 07:35 → 3SCARD 09:09 → 2SICU 10:54 → 3SCARD 02-25 18:04
PROVIDERS: ADMIT Hospitalist; ATTEND Hospitalist
PROC: 5A09357 Assistance with Respiratory Ventilation, Less than 24 Consecutive Hours, Continuous Positive Airway Pressure (ICD-10-PCS; principal; 2023-02-24)
DX: J68.0 Bronchitis and pneumonitis due to chemicals, gases, fumes and vapors (principal); I50.21 Acute systolic (congestive) heart failure; J96.01 Acute respiratory failure with hypoxia; E87.20 Acidosis, unspecified; I42.9 Cardiomyopathy, unspecified; I27.20 Pulmonary hypertension, unspecified; I11.0 Hypertensive heart disease with heart failure; J44.9 Chronic obstructive pulmonary disease, unspecified; Z66 Do not resuscitate; Z20.822 Contact with and (suspected) exposure to COVID-19; Z28.310 Unvaccinated for COVID-19; K22.5 Diverticulum of esophagus, acquired; K21.9 Gastro-esophageal reflux disease without esophagitis; H00.019 Hordeolum externum unspecified eye, unspecified eyelid; I08.3 Combined rheumatic disorders of mitral, aortic and tricuspid valves; Z77.098 Contact with and (suspected) exposure to other hazardous, chiefly nonmedicinal, chemicals; Z79.899 Other long term (current) drug therapy; Z87.891 Personal history of nicotine dependence
CPT/HCPCS: 36415; 71045; 80048; 80053; 80061; 83036; 83605; 83735; 83880; 85025; 85027; 85610; 85730; 87040; 87636; 93005; 93306; 94640; 94660; 94760; 96361; 96374; 96375; 96376; 99291